=== PATIENT | female | born 1965 | race Caucasian/White ===

== ENCOUNTER 2016-07-12 13:59 | Inpatient (IN) | payer OTHER ==
[~2016-07-12] VITALS: Ht 157.5 cm; Wt 59.0 kg
[~2016-07-12 13:59] MED LIST: ALPRAZOLAM ER1 MG PO; AMITRIPTYLINE H10 M2; ATIVAN0.5 M1 PO; COMBIPATCH 0.01 EACH; CYCLOBENZAPRINE5 M2 PO; ESCITALOPRAM OX10 MG PO; FIORICET 300 MG1 CAP PO; FISH OIL500 M1 PO; GARLIC OIL1000 M1 PO; MAGNESIUM250 M3 PO; MAGNESIUM500 M2 PO; MELOXICAM7.5 M1 PO; MULTI-DAY VITA1 EACH PO; NEURONTIN300 M1 PO; NORCO 5-325 TA1 EACH PO; ODORLESS GARLI300 MG PO; PROBIOTIC1 EACH PO; REGLAN10 MG PO; SEA-OMEGA 50 C1 EACH PO; SYNTHROID0.088 MG PO; VITAMIN B-121000 MC3 PO; VITAMIN B-2100 MG PO; VITAMIN B-250 MG PO; VITAMIN C1000 M4 PO; VITAMIN C250 M3 PO; VITAMIN D2000 UNIT PO; VITAMIN D31000 UNI1 PO; XANAX0.5 M1 PO
[2016-07-12] MEDS ORDERED: SYNTHROID112 MCG PO (14:17)
[2016-07-12] MEDS ORDERED: DEXTROAMP-AMPHE10 MG PO (14:17)
[2016-07-12] MEDS ORDERED: CLONAZEPAM0.5 M2 PO (14:17)
[2016-07-12] MEDS ORDERED: SERTRALINE HCL50 MG PO (14:18)
[2016-07-12] MEDS ORDERED: RISPERIDONE0.5 M1 PO (14:18)
--- NOTE | 2016-07-12 14:27 | ED PSYCHIATRIC COMPLAINT ---
History of Present Illness General Chief Complaint: Psychiatric Related Complaint Stated Complaint: +SI/ +HI Source: patient, family, old records Exam Limitations: no limitations Vital Signs & Intake/Output Vital Signs & Intake/Output Vital Signs Date Time Temp Pulse Resp B/P Pulse O2 O2 Flow FiO2 Ox Delivery Rate 07/13 2028 97.7 92 92 105/67 07/13 1538 96 108/63 07/13 1214 100 107/69 07/13 0801 97.5 88 94/54 ED Intake and Output 07/13 0000 07/12 1200 Intake Total 120 Output Total Balance 120 Intake, Oral 120 Patient 130 lb Weight Allergies Coded Allergies: latex (Mild, RASH 01/22/16) escitalopram (From LEXAPRO) (RACING HEART 01/22/16) gluten (INTOLERANCE 01/26/16) Antihistamines - Ethanolamine (Intermediate, "WIRES ME UP" 06/10/16) hydromorphone (NUMBNESS, COULDNT FEEL LEGS 01/22/16) prednisone (ANXIETY 01/22/16) Triage Note: 50 Y/O FEMALE C/O "THESE THOUGHTS ARE GETTING WORSE". REPORTS SI/HI THOUGHTS SINCE LAST TREATED IN ED/CPS. WAS PRESCRIBED MEDICATIONS BUT ADMITS TO NOT TAKING THEM REGULARLY (RISPERDAL, ADDERALL, KLONOPIN AND ZOLOFT). MALE FRIEND IN TRIAGE COMMENTS "SHES LYING". PT C/O DIFFICULTY SLEEPING AND EATING. CALM/COOPERATIVE TO ROOM 14. Triage Nurses Notes Reviewed? yes Onset: Gradual Duration: getting worse Timing: remote history Severity: severe Severity Numbers: 10 HPI: Patient is a 50-year-old female with past medical history of psychosis, homicidal and suicidal ideation, anxiety, depression, hypothyroidism who presents to emergency room with significant concerns for thoughts of harming herself and others. Patient does present to the emergency room with family members of mother and . Patient does state that he she is noncompliant with medications of Risperdal, Adderall, Klonopin and Zoloft. Patient does state that she has racing thoughts consistently of ideations of harming other people when out in public and was harming her pet dog. Patient does state constantly hears things that may not be there OF voices and has premonitions of seeing God Patient denies any illicit drug use and denies any alcohol use however does smoke tobacco. 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 Patient currently is not employed. Patient does live with and mom also discussed they're concerned of severe psychosis and thoughts of harming other people herself and animals. Patient denies any illness currently (JOSEPH BONILLA) Reconcile Medications Clonazepam 0.5 MG TABLET 1 TAB PO DAILY NEEDED INSOMNIA (Reported) Dextroamphetamine/Amphetamine (Dextroamp-Amphetamin 10 MG Tab) 10 MG TABLET 1 TAB PO BID ATTENTION DEFICIT (Reported) Lactobacillus Acidophilus (Probiotic) 1 EACH CAPSULE 1 CAP PO DAILY PROBIOTIC (Reported) Levothyroxine Sodium (Synthroid) 112 MCG TABLET 1 TAB PO DAILY HYPOTHYROIDISM (Reported) Risperidone 0.5 MG TABLET 1 TAB PO QAM DEPRESSION (Reported) 0.5MG QAM Risperidone (Risperdal) 1 MG TABLET 1 MG PO QHS MENTAL HEALTH (Reported) Sertraline HCl 50 MG TABLET 1 TAB PO DAILY DEPRESSION (Reported) (TATO JOHN,RAFY) Past History Travel History Traveled to [place] past 21 day No Medical History Any Pertinent Medical History? see below for history Neurological: peripheral neuropathy EENT: sinusitis Cardiovascular: NONE Respiratory: SARCOIDOSIS Gastrointestinal: CELIAC DISEASE Hepatic: NONE Renal: NONE Musculoskeletal: fibromyalgia Psychiatric: anxiety, depression Endocrine: Baylee's thyroiditis, HYPOTHYROIDISM Blood Disorders: NONE Cancer(s): NONE SCRAP PICKER/Reproductive: NONE History of MRSA: No History of VRE: No History of CDIFF: No Surgical History Surgical History: non-contributory Psychosocial History Who do you live with Family What is your primary language Hebrew Tobacco Use: Current Daily Use Daily Tobacco Use Amount/Type: => 5 Cigarettes daily Family History Hx Contributory? No (JOSEPH BONILLA) Review of Systems Review of Systems Constitutional: Reports: no symptoms. EENTM: Reports: no symptoms. Respiratory: Reports: no symptoms. Cardiovascular: Reports: no symptoms. GI: Reports: no symptoms. Genitourinary: Reports: no symptoms. Musculoskeletal: Reports: no symptoms. Skin: Reports: no symptoms. Neurological/Psychological: Reports: see HPI. Hematologic/Endocrine: Reports: no symptoms. Immunologic/Allergic: Reports: no symptoms. 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 Pupils equally round and reactive to light and accommodation. Nose is atraumatic. External auditory canal and Tympanic membranes clear. Pharynx normal. No swelling or edema. Neck: Supple, no lymphadenopathy, normal range of motion without pain or tenderness Back: Nontender, no CVA tenderness. Cardiovascular: Regular rate and rhythms no murmurs rubs or gallops, normal JVP Respiratory: Chest nontender. No respiratory distress.breath sounds clear to auscultation bilaterally Abdomen: Soft, nontender nondistended, no appreciable organomegaly. Normal bowel sounds. No ascites Extremity: No edema, no calf tenderness to palpation, normal and equal pulses. Neuro: Alert oriented x3, motor sensory normal, cranial nerves II through XII grossly intact. Skin: No appreciable rash on exposed skin, skin is warm and dry. Psych: Mood and affect is normal, memory and judgment is normal. SAD PERSONS SAD PERSONS Response Value Age <19 or >45 years? yes 1 Depression/Hopelessness? yes 2 Previous Attempts/Psych Care yes 1 Rational Thinking Loss? yes 2 Organized/Serious Attempt yes 2 Social Support? has support 0 Total 8 SAD PERSONS Done? yes (LUCIO HUA,JOSEPH) Progress Differential Diagnosis: dementia, drug intoxication, drug overdose, drug withdrawal, electrolyte abnormality, encephalitis, hypoglycemia, hypothyroidism, IC hem/mass/tumor, meningitis Plan of Care: Orders Procedure Date/time Status Change service to 07/13 [facility] Active Lab Add-on Test 07/13 [facility] Active LIPID PANEL 07/12 1445 Complete Current Medications Sig/Remi Start time Last Medication Dose Stop Time Status Admin Risperidone 1 MG 0800 07/14 0800 AC (Risperidone) Nicotine 2 MG Q2 HRS NEEDED PRN 07/13 1715 AC (Nicotine) Cyanocobalamin 1,000 MCG DAILY 07/13 1000 AC (Vitamin B12) Fish Oil 1,050 MG DAILY 07/13 1000 AC ([place]-3) Al Hydroxide/Mg 30 ML Q4-6 PRN PRN 07/12 1645 AC Hydroxide (Maalox Plus) Ibuprofen 400 MG Q6P PRN 07/12 1645 AC (Motrin) Lorazepam 1 MG Q4 HRS NEEDED PRN 07/12 1645 AC (Ativan) Risperidone 0.5 MG Q4 HRS NEEDED PRN 07/12 1645 AC (Risperidone) Trazodone HCl 50 MG AT BEDTIME NEED.. 07/12 1645 AC (Desyrel) I had a private conversation with family members were significantly concerned of patient's mental health. I discussed my concerns with case management who will evaluate patient after blood work and tox- screen is pending Case management evaluated patient and will be admitting to Inpatient Psychiatry (JOSEPH BONILLA) Departure Departure Disposition: STILL A PATIENT Condition: Critical Referrals: NOAH MOYA MD (PCP/Family) Referred to [facility] as new patient No Departure Forms: Customer Survey General Discharge Information Psych Admission Note Psychiatric Admission: I have seen and evaluated JONEL LACY. I have also reviewed all the pertinent lab results and diagnostic results. JONEL LACY will be admitted to our inpatient Psychiatric unit for treatment and care. (JOSEPH BONILLA) Departure Clinical Impression Primary Impression: Psychotic disorder PA/BLOCK SAWYER Co-Sign Statement Statement: ED Attending supervision documentation- [X] I saw and evaluated the patient. I have also reviewed all the pertinent lab results and diagnostic results. I agree with the findings and the plan of care as documented in the PA's/BLOCK SAWYER's documentation. [X] I have reviewed the ED Record and agree with the PA's/BLOCK SAWYER's documentation. [] Additions or exceptions (if any) to the PAs/BLOCK SAWYER's note and plan are summarized below: [] (TATO JOHN,RAFY) Critical Care Note Critical Care Note Critical Care Time: 30-74 min (JOSEPH BONILLA)
[2016-07-12 15:09] LABS: ABSOLUTE BASOPHIL COUNT 0 /CUMM (0.0-0.2); ABSOLUTE EOSINOPHIL COUNT 0 /CUMM (0.0-0.7); ABSOLUTE MONOCYTE COUNT 0.6 /CUMM (0.10-0.60); BASOPHIL % 0.3 % (0.0-2.0); EOSINOPHIL % 0.4 % (0-5); GRANULOCYTE % 82.2 % (42.2-75.2); HEMATOCRIT 47.7 % (37-47); MEAN CORPUSCULAR HGB 30.2 PG (27.0-31.0); MEAN CORPUSCULAR HGB CONC 34.3 G/DL (33.0-37.0); MEAN CORPUSCULAR VOLUME 88.1 FL (81.0-99.0); MEAN PLATELET VOLUME 7.8 FL (7.4-10.4); PLATELET COUNT 330 /CUMM (130-400); RBC DISTRIBUTION WIDTH 13.4 % (11.5-14.5); RED BLOOD CELL CT 5.41 /CUMM (4.20-5.40); WHITE BLOOD CELL COUNT 9.7 /CUMM (4.8-10.8)
--- NOTE | 2016-07-12 16:42 | ED PSYCH CRISIS CONSULTATION ---
Crisis Consult Basic Assessment Date of Consult: 07/12/16 Responsible Person/Accompanied By: Jamir her and her Mother [place] Insurance Authorization: Insurance #1: Insurance name: RONA BL[employer] Phone number: Policy number: [id number] Group number: [id number] Authorization number: I placed a call for authorization, and the office is closed , the number on the back of Insurance card is [phone]. I left a voicemailrequesting a callback/ I provided crisis number as well as CPS. ED Provider: Patient's ED Provider: JOSEPH BONILLA Primary Care Physician: Patient's PCP: NOAH MOYA MD PCP's Current Psychiatrist: ELSIE LARIOS Chief Complaint: Psychiatric Related Complaint Patient's Quote: Im having horrible, violent thoughts and they are getting worse Present Illness: Pt is a 50 year old female most recently admitted to [facility] in May 2016 for MDD, recurrent severe with psychosis. She arrives to ER today with a similar presentation, with her and her Mother as support. Pt states she stopped taking medications as prescribed since her discharge from [facility]. Her offers she was doing well while in the hospital and her symptoms were managed for a few weeks after her discharge, however he mentions she does not want to take medications. Pt agrees with her , and she states she feels "smoking and being exposed to xrays years ago has given her brain damage and she can only focus on negativty". She indicates she is having homicidal thoughts towrds and her dog, as well as thinking she wishes she could just be brave enough to kill herself and "be done with all this already". Patients Mother states these behaviors began in December 2015. Pt is reporting si,hi ,ah, vh. She is tearful, hopeless, not sleeping and having intrusive thoughts, she would like to be admitted to inpatient for stabilization and safety. Patient's Address: [address] [place] [address] Other Who Do You Live With? Family Family/Informants Interviewed: and Mother were there while patient interviewed. And offer they are concerned for her well being at this point, and would like her to be med compliant in future. Allergies - Coded Allergies: latex (Mild, RASH 01/22/16) escitalopram (From LEXAPRO) (RACING HEART 01/22/16) gluten (INTOLERANCE 01/26/16) Antihistamines - Ethanolamine (Intermediate, "WIRES ME UP" 06/10/16) hydromorphone (NUMBNESS, COULDNT FEEL LEGS 01/22/16) prednisone (ANXIETY 01/22/16) Current Medications - Scheduled Medications Alprazolam (Alprazolam ER) 1 MG TAB.ER.24H 1 TAB PO DAILY ANXIETY #30 ( Reported) Entered as Reported by NITESH URBINA on 12/26/15 1158 Ascorbic Acid (Vitamin C) (Unknown Strength) TABLET (Unknown Dose) PO DAILY SUPPLEMENT (Reported) Entered as Reported by CYNTHIA HOLLINS on 01/26/161958 Cholecalciferol (Vitamin D3) (Vitamin D) (Unknown Strength) CAPSULE (Unknown Dose) PO DAILY SUPPLEMENT (Reported) Entered as Reported by CYNTHIA HOLLINS on 01/26/161958 Clonazepam 0.5 MG TABLET 1 TAB PO DAILY NEEDED INSOMNIA #30 (Reported) Entered as Reported by MASON VELIZ on 07/12/16 141 Cyanocobalamin (Vitamin B-12) (Unknown Strength) TABLET (Unknown Dose) PO DAILY SUPPLEMENT (Reported) Entered as Reported by CYNTHIA HOLLINS on 01/26/161956 Dextroamphetamine/Amphetamine (Dextroamp-Amphetamin 10 MG Tab) 10 MG TABLET 1 TAB PO BID ATTENTION DEFICIT #30 (Reported) Entered as Reported by MASON VELIZ on 07/12/16 1417 Gabapentin (Neurontin) 300 MG CAPSULE 1 CAP PO TID fibromyalgia #21 CAP Prescribed by JOSEPH ADAMS on 01/17/16 Garlic (Odorless Garlic) (Unknown Strength) CAPSULE (Unknown Dose) PO DAILY SUPPLEMENT (Reported) Entered as Reported by CYNTHIA HOLLINS on 01/26/162000 Lactobacillus Acidophilus (Probiotic) 1 EACH CAPSULE 1 CAP PO DAILY PROBIOTIC (Reported) Entered as Reported by CYNTHIA HOLLINS on 01/26/161999 Levothyroxine Sodium (Synthroid) 0.088 MG TAB 1 TAB PO DAILY AC THYROID #30 ( Reported) Entered as Reported by NITESH URBINA on 02/07/14 1119 Levothyroxine Sodium (Synthroid) 112 MCG TABLET 1 TAB PO DAILY HYPOTHYROIDISM #30 (Reported) Entered as Reported by MASON VELIZ on 07/12/16 141 Magnesium (Unknown Strength) TABLET (Unknown Dose) PO DAILY SUPPLEMENT ( Reported) Entered as Reported by CYNTHIA HOLLINS on 01/26/161958 Multivitamin (Multi-Day Vitamins) 1 EACH TABLET 1 TAB PO DAILY SUPPLEMENT ( Reported) Entered as Reported by CYNTHIA HOLLINS on 01/26/161956 [place]-3 Fatty Acids (Fish Oil) (Unknown Strength) CAPSULE (Unknown Dose) PO DAILY SUPPLEMENT (Reported) Entered as Reported by CYNTHIA HOLLINS on 01/26/161957 Riboflavin (Vitamin B-2) (Unknown Strength) TABLET (Unknown Dose) PO DAILY SUPPLEMENT (Reported) Entered as Reported by CYNTHIA HOLLINS on 01/26/161957 Risperidone 0.5 MG TABLET 1 TAB PO QAM DEPRESSION #42 (Reported) Entered as Reported by MASON VELIZ on 07/12/16 141 Sertraline HCl 50 MG TABLET 1 TAB PO DAILY DEPRESSION #30 (Reported) Entered as Reported by MASON VELIZ on 07/12/16 141 Scheduled PRN Medications Meloxicam 7.5 MG TABLET 1-2 TAB PO DAILY PRN PAIN #60 (Reported) Entered as Reported by CYNTHIA HOLLINS on 12/21/15 1603 Miscellaneous Medications Amitriptyline HCl (Unknown Strength) TABLET (Unknown Dose) UNKNOWN #30 ( Reported) Entered as Reported by CYNTHIA HOLLINS on 01/26/161954 Estradiol/Norethindrone Acet (Combipatch 0.05-0.14 MG Ptch) (Unknown Strength) PATCH.TDSW (Unknown Dose) UNKNOWN #8 (Reported) Entered as Reported by CYNTHIA HOLLINS on 01/26/161954 Laboratory Results: Laboratory Tests 07/12/16 1445: Anion Gap 11, Estimated GFR > 60, BUN/Creatinine Ratio 10.0, Glucose 119 H, Calcium 9.9, Total Bilirubin 0.7, AST 17, ALT 26, Alkaline Phosphatase 67, Total Protein 7.7, Albumin 4.6, Globulin 3.1, Albumin/Globulin Ratio 1.5, TSH 1.800, Thyroxine (T4) 12.0 H, CBC w Diff NO MAN DIFF REQ, RBC 5.41 H, MCV 88.1, MCH 30.2, RDW 13.4, MPV 7.8, Gran % 82.2 H, Lymphocytes % 10.4 L, Monocytes % 6.7, Eosinophils % 0.4, Basophils % 0.3, Absolute Granulocytes 8.0 H, Absolute Lymphocytes 1.0 L, Absolute Monocytes 0.6, Absolute Eosinophils 0, Absolute Basophils 0, PUBS MCHC 34.3, Serum Alcohol < 10.0 07/12/16 1440: Urine Opiates Screen < 100.00, Methadone Screen < 40, Barbiturate Screen < 60, Ur Phencyclidine Scrn < 6.00, Amphetamines Screen 1431 H, U Benzodiazepines Scrn < 85, Urine Cocaine Screen < 50, Urine Cannabis Screen < 5.00, Urine Color YEL, Urine Clarity HAZY H, Urine pH 6.5, Ur Specific [place] 1.015, Urine Protein NEG, Urine Ketones 15 H, Urine Nitrite NEG, Urine Bilirubin NEG, Urine Urobilinogen 0.2, Ur Leukocyte Esterase NEG, Ur Microscopic SEDIMENT EXAMINED, Urine RBC 5-10 H, Urine WBC RARE, Ur Epithelial Cells MANY H, Urine Crystals 3 + CA OX H, Urine Mucus RARE, Urine Hemoglobin SMALL H, Urine Glucose NEG, Urine Test NEGATIVE Past History Past Medical History Neurological: peripheral neuropathy EENT: sinusitis Cardiovascular: NONE Respiratory: SARCOIDOSIS Gastrointestinal: CELIAC DISEASE Hepatic: NONE Renal: NONE Musculoskeletal: fibromyalgia Psychiatric: anxiety, depression Endocrine: Baylee's thyroiditis, HYPOTHYROIDISM Blood Disorders: NONE Cancer(s): NONE DIRECTOR ENVIRONMENTAL/Reproductive: NONE Past Surgical History Surgical History: non-contributory Psychosocial History Strengths/Capabilities: Pt has a supportive family. Pt has a desire to feel better. Pt is treatment-seeking. Pt is able to articulate her wants and needs. Physical Limitations (Interventions): Chronic back pain Psychiatric Treatment History Psych Treatment Psychiatric Treatment Yes Inpatient Treatment Yes Outpatient Treatment Yes Location of Treatment [facility] and OP Reason for Treatment MDD, psychosis Dates of Treatment May 2016, and currently in OP Response to Treatment did better in hospital, and has difficulty staying med compliant Diagnosis by History: generalized anxiety d/o Substance Use/Abuse History Drug Use/Abuse Substances Used/Abused No Substance Abuse Treatment Substance Abuse Treatment Past Substance Abuse [place] No Comments: Pt is prescribed Adderall, and took it today before lunch Current Mental Status Mental Status Orientation: Person, Place, Situation Affect: Blunted, Depressed, Flat, Hopeless, Sad Speech: Soft, WNL Neuro-vegetative: Appetite Decreased, Concentration Poor, Energy Decreased, Helpless, Loss of Interest, Sleep Disturbance Appearance Appearance- Dress/Hygiene: Looks appropriate in hospital attire Behaviors Thought Process: Irrational Thought Content: Auditory Hallucinations, Delusions, Paranoid, Visual Hallucinations Memory: WNL Insight: Poor SI/HI Risk Assessment Past Suicidal Ideation/Attempts Yes Current Suicidal Ideation/Att Yes Past Homicidal Ideation/Att: Yes Current Homicidal Ideation/Attempts Yes Degree of Intent: Self Destructive/No , Thoughts/No Intent Danger To: Others, Self Gravely Disabled: Inability Risk Factors: SA/MH hospitalized, lack of outcome concern Lethality Ratin PTSD Checklist PTSD Done? patient declined ED Management Sitter: Yes Restraints: No DSM5/PS Stressors/Medical Prob Diagnosis' (DSM 5, Stressors, Medical): F33.3 MDD recurrent severe, with psychosis Current GAF: 26 Departure Disposition Psych Medical Clearance Date: 07/12/16 Medically Cleared at: 1539 Time Started: 1539 Time Ended: 163 Psychiatrist Consulted: Jose Carpenter Date Disposition Established: 07/12/16 Time Disposition Established: 1638 Plan for Disposition - Modality: Inpatient Psychiatry Facility: [facility] Follow-up Appt Date: 07/12/16 Follow-Up Appt Time: 1640 Contact: [facility] Telephone: [phone] Rationale for Disposition: Consulted with Dr. Carpenter, pt to be admitted to [facility] due to mood insyability, and psychosis. Pt reporting si,hi,ah,vh, and stopped taking medication. Type of IP Admission: Voluntary Additional Instructions: Pt to follow up with treatment recommendations possible referral to visiting nursing post CPS admission. Referrals NITA JOHN,NOAH (PCP/Family)
--- NOTE | 2016-07-12 16:48 | IP CRISIS DIAG ASSESS PSYCH ---
Diagnostic Assessment Basic Assessment Insurance Authorization: Insurance #1: Insurance name: RONA BLACK Phone number: Policy number: [id number] Group number: [id number] Authorization number: I placed a call for authorization, and the office is closed , the number on the back of Insurance card is [phone]. I left a voicemailrequesting a callback/ I provided crisis number as well as CPS. Primary Care Physician: Patient's PCP: NOAH MOYA MD PCP's Patient's Quote: Im having horrible, violent thoughts and they are getting worse Present Illness: Pt is a 50 year old female most recently admitted to [facility] in May 2016 for MDD, recurrent severe with psychosis. She arrives to ER today with a similar presentation, with her and her Mother as support. Pt states she stopped taking medications as prescribed since her discharge from [facility]. Her offers she was doing well while in the hospital and her symptoms were managed for a few weeks after her discharge, however he mentions she does not want to take medications. Pt agrees with her , and she states she feels "smoking and being exposed to xrays years ago has given her brain damage and she can only focus on negativty". She indicates she is having homicidal thoughts towrds and her dog, as well as thinking she wishes she could just be brave enough to kill herself and "be done with all this already". Patients Mother states these behaviors began in December 2015. Pt is reporting si,hi ,ah, vh. She is tearful, hopeless, not sleeping and having intrusive thoughts, she would like to be admitted to inpatient for stabilization and safety. Patient's Address: [address] [place] [address] Other Who Do You Live With? Family Feel Safe Where You Live? Yes Feel Safe in Your Relationship Yes Marital Status: Do You Have Children? Yes Ages? 19 and 20 Primary Language? Tanzanian Language(s) Spoken At Home: Tanzanian Family/Informants Interviewed: and Mother were there while patient interviewed. And offer they are concerned for her well being at this point, and would like her to be med compliant in future. Allergies - Coded Allergies: latex (Mild, RASH 01/22/16) escitalopram (From LEXAPRO) (RACING HEART 01/22/16) gluten (INTOLERANCE 01/26/16) Antihistamines - Ethanolamine (Intermediate, "WIRES ME UP" 06/10/16) hydromorphone (NUMBNESS, COULDNT FEEL LEGS 01/22/16) prednisone (ANXIETY 01/22/16) Current Medications - Scheduled Medications Ascorbic Acid (Vitamin C) (Unknown Strength) TABLET (Unknown Dose) PO DAILY SUPPLEMENT (Reported) Entered as Reported by CYNTHIA HOLLINS on 01/26/161958 Cholecalciferol (Vitamin D3) (Vitamin D) (Unknown Strength) CAPSULE (Unknown Dose) PO DAILY SUPPLEMENT (Reported) Entered as Reported by CYNTHIA HOLLINS on 01/26/161958 Clonazepam 0.5 MG TABLET 1 TAB PO DAILY NEEDED INSOMNIA #30 (Reported) Entered as Reported by MASON VELIZ on 07/12/161416 Cyanocobalamin (Vitamin B-12) (Unknown Strength) TABLET (Unknown Dose) PO DAILY SUPPLEMENT (Reported) Entered as Reported by CYNTHIA HOLLINS on 01/26/161956 Dextroamphetamine/Amphetamine (Dextroamp-Amphetamin 10 MG Tab) 10 MG TABLET 1 TAB PO BID ATTENTION DEFICIT #30 (Reported) Entered as Reported by MASON VELIZ on 07/12/16 141 Gabapentin (Neurontin) 300 MG CAPSULE 1 CAP PO TID fibromyalgia #21 CAP Prescribed by JOSEPH ADAMS on 01/17/16 Garlic (Odorless Garlic) (Unknown Strength) CAPSULE (Unknown Dose) PO DAILY SUPPLEMENT (Reported) Entered as Reported by CYNTHIA HOLLINS on 01/26/162000 Lactobacillus Acidophilus (Probiotic) 1 EACH CAPSULE 1 CAP PO DAILY PROBIOTIC (Reported) Entered as Reported by CYNTHIA HOLLINS on 01/26/161999 Levothyroxine Sodium (Synthroid) 112 MCG TABLET 1 TAB PO DAILY HYPOTHYROIDISM #30 (Reported) Entered as Reported by MASON VELIZ on 07/12/161416 Magnesium (Unknown Strength) TABLET (Unknown Dose) PO DAILY SUPPLEMENT ( Reported) Entered as Reported by CYNTHIA HOLLINS on 01/26/161958 Multivitamin (Multi-Day Vitamins) 1 EACH TABLET 1 TAB PO DAILY SUPPLEMENT ( Reported) Entered as Reported by CYNTHIA HOLLINS on 01/26/161956 [place]-3 Fatty Acids (Fish Oil) (Unknown Strength) CAPSULE (Unknown Dose) PO DAILY SUPPLEMENT (Reported) Entered as Reported by CYNTHIA HOLLINS on 01/26/161957 Riboflavin (Vitamin B-2) (Unknown Strength) TABLET (Unknown Dose) PO DAILY SUPPLEMENT (Reported) Entered as Reported by CYNTHIA HOLLINS on 01/26/161957 Risperidone 0.5 MG TABLET 1 TAB PO QAM DEPRESSION #42 (Reported) Entered as Reported by MASON VELIZ on 07/12/16 141 Sertraline HCl 50 MG TABLET 1 TAB PO DAILY DEPRESSION #30 (Reported) Entered as Reported by MASON VELIZ on 07/12/16 1418 Scheduled PRN Medications Meloxicam 7.5 MG TABLET 1-2 TAB PO DAILY PRN PAIN #60 (Reported) Entered as Reported by CYNTHIA HOLLINS on 12/21/15 1603 Miscellaneous Medications Estradiol/Norethindrone Acet (Combipatch 0.05-0.14 MG Ptch) (Unknown Strength) PATCH.TDSW (Unknown Dose) UNKNOWN #8 (Reported) Entered as Reported by CYNTHIA HOLLINS on 01/26/161954 Consequences of Psych Med Use: non-compliant since previous discharge Lab Results: Laboratory Tests 07/12/16 1445: Anion Gap 11, Estimated GFR > 60, BUN/Creatinine Ratio 10.0, Glucose 119 H, Calcium 9.9, Total Bilirubin 0.7, AST 17, ALT 26, Alkaline Phosphatase 67, Total Protein 7.7, Albumin 4.6, Globulin 3.1, Albumin/Globulin Ratio 1.5, TSH 1.800, Thyroxine (T4) 12.0 H, CBC w Diff NO MAN DIFF REQ, RBC 5.41 H, MCV 88.1, MCH 30.2, RDW 13.4, MPV 7.8, Gran % 82.2 H, Lymphocytes % 10.4 L, Monocytes % 6.7, Eosinophils % 0.4, Basophils % 0.3, Absolute Granulocytes 8.0 H, Absolute Lymphocytes 1.0 L, Absolute Monocytes 0.6, Absolute Eosinophils 0, Absolute Basophils 0, PUBS MCHC 34.3, Serum Alcohol < 10.0 07/12/16 1440: Urine Opiates Screen < 100.00, Methadone Screen < 40, Barbiturate Screen < 60, Ur Phencyclidine Scrn < 6.00, Amphetamines Screen 1431 H, U Benzodiazepines Scrn < 85, Urine Cocaine Screen < 50, Urine Cannabis Screen < 5.00, Urine Color YEL, Urine Clarity HAZY H, Urine pH 6.5, Ur Specific [place] 1.015, Urine Protein NEG, Urine Ketones 15 H, Urine Nitrite NEG, Urine Bilirubin NEG, Urine Urobilinogen 0.2, Ur Leukocyte Esterase NEG, Ur Microscopic SEDIMENT EXAMINED, Urine RBC 5-10 H, Urine WBC RARE, Ur Epithelial Cells MANY H, Urine Crystals 3 + CA OX H, Urine Mucus RARE, Urine Hemoglobin SMALL H, Urine Glucose NEG, Urine Test NEGATIVE Toxicology Screen Completed? Yes Results: positive Symptoms of Use: Pt denies drugs and etoh abuse, is prescribed adderral. Past History Past Surgical History Surgical History , MEDIASTINEOSCOPY Abuse/Trauma History Trauma History/Current Trauma: Denies Legal History Current Legal Status: none Have you ever been arrested? No Number of Arrests: [address] Dates: None Affirmative Action Specialist N/a Psychosocial History Strengths/Capabilities: Pt has a supportive family. Pt has a desire to feel better. Pt is treatment-seeking. Pt is able to articulate her wants and needs. Physical Limitations (Interventions): Chronic back pain Psychiatric Treatment History Psych Treatment Psychiatric Treatment Yes Inpatient Treatment Yes Outpatient Treatment Yes Location of Treatment [facility] and OP Reason for Treatment MDD, psychosis Dates of Treatment May 2016, and currently in OP Response to Treatment did better in hospital, and has difficulty staying med compliant Diagnosis by History: generalized anxiety d/o Risk Factors: SA/MH hospitalized, lack of outcome concern Substance Use/Abuse History Drug Use/Abuse minimum 12mo Hx Substances Used/Abused No Substance Abuse Treatment Substance Abuse Treatment Past Substance Abuse [place] No Sexual History Sexually Active Yes # of partners 1 Sexual Orientation Heterosexual Use of Protection No Sexual Concerns: denies Education History Highest Level of Education: high school/GED, xray school Preferred Learning Style: visual, auditory, experiential Current Mental Status Mental Status Orientation: Person, Place, Situation Affect: Blunted, Depressed, Flat, Hopeless, Sad Speech: Soft, WNL Neuro-vegetative: Appetite Decreased, Concentration Poor, Energy Decreased, Helpless, Loss of Interest, Sleep Disturbance Appearance Appearance- Dress/Hygiene: Looks appropriate in hospital attire Behaviors Thought Process: Irrational Thought Content: Auditory Hallucinations, Delusions, Paranoid, Visual Hallucinations Memory: WNL Insight: Poor SI/HI Risk Assessment - Minimum 6mo History- Past Suicidal Ideation/Attempts Yes Current Suicidal Ideation/Att Yes Past Homicidal Ideation/Att: Yes Current Homicidal Ideation/Attempts Yes Degree of Intent: Self Destructive/No , Thoughts/No Intent Danger To: Others, Self Gravely Disabled: Inability Risk Factors: SA/MH hospitalized, lack of outcome concern Lethality Ratin Needs/Init TX Plan/Goals: Medication evaluation, restart as recommended Group, individual therapy Family work AUDIT-C Questionnaire: AUDIT-C Questionnaire: Response Value ETOH use in the past year Never 0 # drinks typical/day Doesn't Drink 0 6 or > drinks per occasion Never 0 Total 0 DSM5/PS Stressors/Medical Prob Diagnosis' (DSM 5, Stressors, Medical): F33.3 MDD recurrent severe, with psychosis Current GAF: 26
[2016-07-12 17:24] VITALS: BP 107/75
[2016-07-12] MEDS ORDERED: RISPERDAL1 M1 PO (18:52)
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
--- NOTE | 2016-07-12 20:13 | PN- Att Addend ---
See Addendum Attending Addendum Attending Brief Note This is a follow up note, as patient was discharged within the past 30 days. 50 yo F with h/o fibromyalgia, sarcoidosis, celiac disease, hypothyroidism, recently admitted for psychosis, depression and homicidal ideation (May 2016), is re-admitted to [facility] for homicidal ideation and racing thoughts. Patient is afraid that she will hurt her and her dog with these thoughts coming to her mind. She stopped taking her medications (Risperidal, Adderall, Klonopin and Zoloft) soon after discharge last month. She felt that the medications were not doing much for her. With regards to hypothyroidism, Dr. Yo evaluated patient during last admission. He has increased the synthroid dose to 112 mcg as TSH was elevated to 14. Patient followed up with Dr. Yo after discharge, no new med changes were done. She was asked to get repeat blood work around [place]. TSH today is 1.80. She reports chest discomfort and breathing difficulty only when she gets anxiety episodes. Of note, she stopped taking amitriptyline and gabapentin as her neuropathy and fibromyalgia is better. PMH: Sarcoidosis s/p mediastinoscopy, Baylee's thyroiditis, hypothyroidism, celiac disease, peripheral neuropathy, fibromyalgia, anxiety, depression, sinusitis. PSH: Sinus surgery, LSCS, mediastinoscopy. Family history: Father had hypertension and ruptured cerebral aneurysm. Social history: Current everyday smoker, Denies alcohol and illicit drug use. 12 point review of systems is otherwise negative. Vital Signs Date Time Temp Pulse Resp B/P Pulse O2 O2 Flow FiO2 Ox Delivery Rate 07/12 1724 97.7 100 107/75 07/12 1705 98 07/12 1650 Room Air 07/12 1640 98.4 110 16 136/80 98 Room Air 07/12 1514 98.1 80 18 130/80 96 Room Air 07/12 1406 98.1 111 20 131/86 95 Room Air Physical exam: Gen: AAO, co-operative. Skin: No rashes or breakdown. HEENT: Atraumatic, PERRLA. Neck: Supple. Chest: clear. Heart: S1S2 regular, no murmurs. Abd: soft, NT. Neuro: non focal. Extremities: no edema. Laboratory Tests 07/12 07/12 1445 1440 Chemistry Sodium (137 - 145 mmol/L) 139 Potassium (3.5 - 5.1 mmol/L) 4.5 Chloride (98 - 107 mmol/L) 104 Carbon Dioxide (22 - 30 mmol/L) 25 Anion Gap (5 - 16) 11 BUN (7 - 17 mg/dL) 9 Creatinine (0.5 - 1.0 mg/dL) 0.9 Estimated GFR (>60 ml/min) > 60 BUN/Creatinine Ratio (7 - 25 %) 10.0 Glucose (65 - 99 mg/dL) 119 H Calcium (8.4 - 10.2 mg/dL) 9.9 Total Bilirubin (0.2 - 1.3 mg/dL) 0.7 AST (14 - 36 U/L) 17 ALT (9 - 52 U/L) 26 Alkaline Phosphatase (<127 U/L) 67 Total Protein (6.3 - 8.2 g/dL) 7.7 Albumin (3.5 - 5.0 g/dL) 4.6 Globulin (1.9 - 4.2 gm/dL) 3.1 Albumin/Globulin Ratio (1.1 - 2.2 %) 1.5 TSH (0.270 - 4.200 uIU/mL) 1.800 Thyroxine (T4) (4.5 - 10.9 ug/dL) 12.0 H Hematology CBC w Diff NO MAN DIFF REQ WBC (4.8 - 10.8 /CUMM) 9.7 RBC (4.20 - 5.40 /CUMM) 5.41 H Hgb (12.0 - 16.0 G/DL) 16.4 H Hct (37 - 47 %) 47.7 H MCV (81.0 - 99.0 FL) 88.1 MCH (27.0 - 31.0 PG) 30.2 RDW (11.5 - 14.5 %) 13.4 Plt Count (130 - 400 /CUMM) 330 MPV (7.4 - 10.4 FL) 7.8 Gran % (42.2 - 75.2 %) 82.2 H Lymphocytes % (20.5 - 51.1 %) 10.4 L Monocytes % (1.7 - 9.3 %) 6.7 Eosinophils % (0 - 5 %) 0.4 Basophils % (0.0 - 2.0 %) 0.3 Absolute Granulocytes (1.4 - 6.5 /CUMM) 8.0 H Absolute Lymphocytes (1.2 - 3.4 /CUMM) 1.0 L Absolute Monocytes (0.10 - 0.60 /CUMM) 0.6 Absolute Eosinophils (0.0 - 0.7 /CUMM) 0 Absolute Basophils (0.0 - 0.2 /CUMM) 0 PUBS MCHC (33.0 - 37.0 G/DL) 34.3 Toxicology Urine Opiates Screen (>2000 NG/ML) < 100.00 Methadone Screen (>300 NG/ML) < 40 Barbiturate Screen (>200 NG/ML) < 60 Ur Phencyclidine Scrn (>25 NG/ML) < 6.00 Amphetamines Screen (>1000 NG/ML) 1431 H U Benzodiazepines Scrn (>200 NG/ML) < 85 Urine Cocaine Screen (>300 NG/ML) < 50 Urine Cannabis Screen (>50 NG/ML) < 5.00 Serum Alcohol (<10 MG/DL) < 10.0 Urines Urine Color (YEL,AMB,STR) YEL Urine Clarity (CLEAR) HAZY H Urine pH (5.0 - 8.0) 6.5 Ur Specific [place] (1.001 - 1.035) 1.015 Urine Protein (NEG,<30 MG/DL) NEG Urine Ketones (NEG) 15 H Urine Nitrite (NEG) NEG Urine Bilirubin (NEG) NEG Urine Urobilinogen (0.1 - 1.0 EU/dl) 0.2 Ur Leukocyte Esterase (NEG) NEG Ur Microscopic SEDIMENT EXAMINED Urine RBC (0 - 5 /HPF) 5-10 H Urine WBC (0 - 2 /HPF) RARE Ur Epithelial Cells (NONE,FEW) MANY H Urine Crystals 3+ CA OX H Urine Mucus (FEW,NONE) RARE Urine Hemoglobin (NEG) SMALL H Urine Glucose (N MG/DL) NEG Urine Test NEGATIVE Assessment and plan: 50 yo F with h/o fibromyalgia, celiac disease and hypothyroidism, is admitted to [facility] for homicidal ideation, anxiety, ?psychosis. 1. Management per Psych team. 2. Hypothyroidism. TSH and free T4 are normal, with an elevated Total T4. I discussed with Dr. Yo, he recommends to continue with current dose (112 mcg) of synthroid and patient can follow up as outpatient. 3. Smoking cessation counseling, nicotine patch. 4. Fibromyalgia/neuropathy under control. It is worse during summer time. Patient has voluntarily stopped taking amitriptyline and gabapentin. Will monitor for now. DVT ppx Low risk, early ambulation.
[2016-07-13 08:01] VITALS: BP 94/54
--- NOTE | 2016-07-13 10:55 | SOCIAL WORKER TX PLAN PSYCH ---
Treatment Plan - Please Document: - Evidence that there is ongoing collaboration between - the patient and the interdisciplinary team, - including the patient's active participation and - responsibility for engaging in the treatment regimen, - and that the treatment plan is individualized and - relevant to the patient's conditions. - Treatment plan should reflect documentation indicating - that all active therapeutic efforts are included. Strengths/Capabilities: Pt has a supportive family. Pt has a desire to feel better. Pt is treatment-seeking. Pt is able to articulate her wants and needs. Physical Limitations (Interventions): Chronic back pain Patient Identified Trmt Goals: "I want these thoughts and voices to go away" Discharge Plan: IOP Problem/Goals #1 Problem #1: homicidal ideation Goal (Short Term): Today I will attend 2 groups Today I will identify 2 stressors Today I will identify 2 positive supports Today I will work on recognizing 3 emotions I am feeling Goal (Half-Way): Be free of homicidal thoughts/attempts Develop 3 coping skills to deal with depression Identify 3 positive support systems to call in crisis Develop a crisis plan with 3 edouard people Identify 2 positive traits per week about myself Identify 2 things I have to look forward to Identify 2 positive people in my life and 1 thing I appreciate about them DSM5/PS Stressors/Medical Prob Diagnosis' (DSM 5, Stressors, Medical): 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
--- NOTE | 2016-07-13 10:55 | SOCIAL WORKER PROG NOTE PSYCH ---
Social Work Progress Note Progress Note Patient authorized 8 days 07/12/16-07/19/16 with review due on 07/20/16. Auth # [id number]. Call [phone] for review.
[2016-07-13 12:14] VITALS: BP 107/69
[2016-07-13 15:38] VITALS: BP 108/63
--- NOTE | 2016-07-13 16:01 | CPS MD/APRN INITIAL ASSE PSYCH ---
Psychiatric Admission Hotel Yardperson's Note Reviewed: Yes Patient Seen and Examined: Yes Identifying Information: Patient is a 50-year old female. Chief Complaint: "I can't stop my thoughts." Reaction to Hospitalization: "I'm glad to be here, I need help." History of Present Illness Onset of Illness: Patient had been discharged from [facility] in May 2016 for MDD, recurrent severe, with psychosis. Patient reported medication nonadherence with psychotropic medications x 1 week prior to this hospital presentation. Since her discharge from [facility] in May 2016, patient was started on Adderall 10mg BID and Zoloft 50mg Qday and Risperdal 0.5mg QAM and 1mg at HS were continued by OPS. She was brought to ED by her mother and related to endorsing paranoid and delusional thoughts, and HI toward her , mother, adult children and dog with command auditory hallucinations to stab them. Circumstances Leading to Admission: medication and treatment nonadherence Problem(s) Justifying Need for Admission: +HI towards , mother, adult children and dog, +paranoia and delusions, intrusive/racing ego dystonic thoughts; command auditory hallucinations to stab adult children, , mother, and dog. 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 - Include inpatient and outpatient treatment Treatment History: [facility] (attended 1 med appointment on 06/25/[address] Barajas). [facility] (06/09/16-06/16/16) [facility] this past summer. [facility] 2016 History of Suicide Attempts or Gestures Patient denied. Substance Abuse History: Patient denied. Allergies: Coded Allergies: latex (Mild, RASH 01/22/16) escitalopram (From LEXAPRO) (RACING HEART 01/22/16) gluten (INTOLERANCE 01/26/16) Antihistamines - Ethanolamine (Intermediate, "WIRES ME UP" 06/10/16) hydromorphone (NUMBNESS, COULDNT FEEL LEGS 01/22/16) prednisone (ANXIETY 01/22/16) Home Med List: Sertraline 50 mg QAm Adderall 10 mg BID Clonazepam 0.5 mg to 1 mg at bedtime Risperdal 0.5mg QAM and 1mg at HS - Include any medical condition(s) that may - impact the patient's recovery/remission Past Medical History: Fibromyalgia chronic back pain celiac disease hypothyroidism sarcoidosis Past History Medical History Neurological: peripheral neuropathy EENT: sinusitis Cardiovascular: NONE Respiratory: SARCOIDOSIS Gastrointestinal: CELIAC DISEASE Hepatic: NONE Renal: NONE Musculoskeletal: fibromyalgia Psychiatric: anxiety, depression Endocrine: Baylee's thyroiditis, HYPOTHYROIDISM Blood Disorders: NONE Cancer(s): NONE BOX MACHINE OPERATOR/Reproductive: NONE History of MRSA: No History of VRE: No History of CDIFF: No Surgical History Surgical History: , MEDIASTINEOSCOPY Psychiatric Family/Social Hx Family History Psychiatric Illness: Patient reported her paternal aunt had early onset dementia. Denied family psychiatric illness. Substance Use: Patient denied. Suicides: Pt denied. Social History Living Situation: Patient lives at home with her , adult children, and dog. Significant Relationships (family/friends): , children, mother and brother. 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 Had worked at [employer] Legal: Pt denied. Healthly Behaviors Screening Tobacco Screening Tobacco Use from ED Docu: Current Daily Use Daily Tobacco Use Amount/Type: => 5 Cigarettes daily - If tobacco counseling indicated - the following topics are required. - #1 Recognizing dangerous situations. - #2 Coping Skills. - #3 Basic information about quitting. Status of Tobacco Cessation Counseling: #1, #2 AND #3 Completed Cessation Med Status: Nicotine Gum Ordered Alcohol Screening - ETOH screen POS if BAL >=80 or Audit-C>= M4/F3 Audit-C Score from Diag Assess: 0 Blood Alcohol Level: Laboratory Tests 07/12 1445 Toxicology Serum Alcohol (<10 MG/DL) < 10.0 Alcohol Use Screening Results: Neg per Audit C &/or BAL - If ETOH counseling indicated - the following topics are required. - #1 Express concern about the patient's - drinking at unhealthy levels, include informing - of national norms for moderate drinking: - men <= 14 drinks/week, max 4 drinks/occasion - women <= 7 drinks/week, max 3 drinks/occasion - #2 Providing feedback, including linking alcohol to - negative physical effects (liver injury, hypertension) - negative emotional effects (relationship problems and - depression) - negative occupational consequences (reduced work - performance) - #3 Advising the patient to abstain from alcohol or - to drink below national norms for moderate drinking - (as listed above). Status of ETOH Use Counseling: N/A B/C NO ETOH Use Metabolic Screening - Screen if on a Neuroleptic Medication - Metabolic screening should include: - Blood Pressure, BMI, Glucose or Hgb A1c, & a - Lipid profile from within the past 365 days. Metabolic Screening () Not Applicable, patient not on a neuroleptic. OR ([X]) Patient on a neuroleptic(s) . Enter below results for Glucose or Hemoglobin A1C, and lipid panel if obtained during the last 365 days. BMI: 23.800 Blood Pressure: 108/63 Laboratory Results (If applicable): Lab Cholesterol 193 MG/DL 07/12/16 1445 Cholesterol/HDL Ratio 3 % 07/12/16 1445 Glucose 119 mg/dL H 07/12/16 1445 HDL Cholesterol 73 mg/dL H 07/12/16 1445 LDL Cholesterol, Calc 102 mg/dL 07/12/16 1445 Triglycerides 94 mg/dL 07/12/16 1445 Exam and Plan Mental Status Examination Ambulation Status: Steady and independent Appearance: Well groomed, petite female. Attitude towards examiner: Cooperative Psychomotor activity: WNL Behavior: WNL Quality of speech: Normal in rate, tone and volume. Affect: Constricted Mood: "Overwhelmed" Suicidal Ideation: Patient denied. Homicidal Ideation: She reported last HI was towards her , mother, adult children, and dog on [email or web address]. Hallucinations: Patient reported hearing voices of "God," "the devil," and "my own voice." She reported "it's a three way continuous conversation." Paranoid/Delusional Material: +hyperreligiousity of God and the Devil. Patient continues to endorse beliefs that she has severe environmental sensitivities that affect her neurologically. Difficulties with thought organization: Grossly intact. Insight: Limited Judgment: Fair Orientation: A&Ox4 Cognition: Grossly intact Memory Function: Grossly intact Estimate of intellectual functioning: Average Assets/Strengths Patient Identified Assets/Strengths: Motivated for treatment, educated, supportive family Impression/Plan Impression and Plan: Patient is a 50-year old female with a h/o Baylee's thyroiditis, sarcoidosis, hypothyroidism, celiac disease, and fibromyalgia. She was discharged from [facility] in May 2016 on Risperdal 0.5mg QAM and 1mg QHS, after initial presentation of command auditory hallucinations telling her to harm herself and . Symptoms had stabilized on Risperdal 0.5mg QAM and 1mg QHS during previous hospitalization. She represents to [facility] with symptoms of hyperreligiousity of the devil and God, and command auditory hallucinations telling her to stab her mother, adult children, dog and . She reported "obsessive" ego-dystonic intrusive and racing thoughts. Thought process appears linear, paranoid and delusional. She reported being off of psychotropic medications x 1 week prior to this present hospitalization. Of note, she had been started on Adderall 10mg BID during OPS services for unclear reasons. Concern for Adderall ? activating psychotic symptoms. Will not restart Adderall at this time. - Include all active medical diagnosis that require tx DSM 5 Diagnosis(es): MDD, recurrent, severe with psychotic features. R/O OCD R/O Neurocognitive disorder R/O psychotic disorder related to a medical condition. - Initial Tx Plan for Active Psych & Medical Conditions Treatment Plan: 1. Patient will be monitored on the unit for safety, depression, anxiety, suicidal ideation, homicidal ideation, racing thoughts and auditory hallucinations. 2. Additional information is needed from collaterals, including her , and Dr. Barajas from OPS. 3. Anticipate once clinically stable, that the patient will be discharged to home and family and be referred to IOP. 4. Seen for admission H&P by Dr. Rin Alcala. TSH and free T4 resulted normal, with an elevated Total T4. Per H&P eval, Dr. Alcala discussed with Dr. Yo, he recommended to continue with current dose (112 mcg) of synthroid and patient can follow up as outpatient. 5. Increase Risperdal from 0.5mg QAM and 1mg QHS to Risperdal 1mg BID. Consider increasing during hospitalization to further target psychosis. 6. If symptoms of psychosis clear on Risperdal, will consider increasing Zoloft above 50mg QD to target intrusive ego dystonic thoughts. - Factors that would help patient function - in a less restrictive setting. Factors: Alleviation of HI and CAH. Stabilize psychosis. Medication/treatment adherence.
--- NOTE | 2016-07-13 16:49 | SOCIAL WORKER PROG NOTE PSYCH ---
Social Work Progress Note Progress Note Met with patient today for the first time since readmission to the hospital. Patient presents much more religiously preoccupied this time around. Patient reports experiencing auditory hallucinations form both God and the Devil. She reports a constant cardenas in her head between these voices and that the Devil tries to justif her homicial thoughts. Patient reports that she recently (most recently on [place]) having thoughts and plans to stab her family members, including her mother, children, and her dog. She reports having to fight these thoughts from acting on them. Patient reports being preoccupied with numbers and the meanings of her dreams. She reports trying to count up numbers constantly and finding the meanings of the numbers. Patient states the voices in her head tell her " I am a serial killer." Patient expresses her fear over these thoughts and voices and reports no desire to act on them presently. Patient is open to med adjustments at this time and continues to express a desire for neuro psych testing.
[2016-07-13 20:28] VITALS: BP 105/67
[2016-07-14 07:44] VITALS: BP 88/55
--- NOTE | 2016-07-14 11:14 | CP SOUTH PROGRESS NOTE PSYCH ---
Psych (Inpt) Progress Note Progress Note Include the following elements, when applicable: Involvement in the active treatment of the patient with behavioral observations of the patient and the patient's response to the treatment. Review of the ongoing treatment process in the context of the treatment plan. Indication of how multi-disciplinary staff members are carrying out the treatment plan. Plans for future interventions and recommendations for revision of the treatment plan. Liaison with other physicians/providers. Progress Note: [I discussed this patient's progress to date, current mental status, treatment process in the context of the treatment plan, and discharge planning with staff/ team in the daily morning inpatient team meeting. I also met with the patient myself in individual session.] SUBJECTIVE: "My mind won't shut off." OBJECTIVE: Current Medications Sig/Remi Start time Last Medication Dose Route Stop Time Status Admin Al Hydroxide/Mg 30 ML Q4-6 PRN PRN 07/12 1645 AC Hydroxide PO Benztropine Mesylate 0.5 MG 0800,0 07/13 2200 AC 07/14 PO 0857 Cholecalciferol 1,000 IU DAILY 07/13 1000 AC 07/14 PO 0857 Clonazepam 0.5 MG DAILY NEEDED PRN 07/12 1630 AC 07/12 PO 07/19 1629 2041 Cyanocobalamin 1,000 MCG DAILY 07/13 1000 AC 07/14 PO 0857 Fish Oil 1,050 MG DAILY 07/13 1000 AC 07/14 PO 0858 Ibuprofen 400 MG Q6P PRN 07/12 1645 AC PO Lactobacillus 1 CAP DAILY 07/13 1000 AC 07/14 Acidophilus PO 0857 Levothyroxine Sodium 0.112 MG 1/2H BEFOR/BREAKFAST 07/13 0700 AC 07/14 PO 0715 Lorazepam 1 MG Q4 HRS NEEDED PRN 07/12 1645 DC PO Multivitamins 1 TAB DAILY 07/13 1000 AC 07/14 Therapeutic PO 0858 Nicotine 2 MG Q2 HRS NEEDED PRN 07/13 1715 AC PO Risperidone 1 MG 0800 07/14 0800 AC 07/14 PO 0857 Risperidone 0.5 MG DAILY 07/13 1000 DC 07/13 PO 0945 Risperidone 1 MG AT BEDTIME 07/12 2200 AC 07/13 PO 2134 Risperidone 0.5 MG Q4 HRS NEEDED PRN 07/12 1645 AC PO Sertraline HCl 50 MG DAILY 07/13 1000 DC 07/14 PO 0857 Trazodone HCl 50 MG AT BEDTIME NEED.. 07/12 1645 AC PO Vital Signs Date Time Temp Pulse Resp B/P Pulse O2 O2 Flow FiO2 Ox Delivery Rate 07/14 0744 96.6 87 88/55 07/138 97.7 92 92 105/67 07/13 1538 96 108/63 07/13 1214 100 107/69 ASSESSMENT: Collateral was received from OPS Dr. Ryan Barajas: He met with the patient on 1 encounter on 06/25/16 for medication intake. Patient had presented with intrusive thoughts, and complaints of poor attention, which appeared to have an OCD component during his encounter with her. Adderall 10mg BID was started for poor attention as a temporary treatment in addtion to Zoloft 50mg daily, Clonazepam 0.5 mg to 1 mg at bedtime, and the patient was recommended to continue Risperdal 0.5mg every morning and 1mg at HS. The patient did not show to scheduled follow-up appointment on 07/05/16. Dr. Barajas reported that there appeared to be many inernal and external inconsistencies to the patient's reported history/presentation. During his encounter with her, the patient did not appear acutely psychotic or seem to fit any particular known clinical picture. He further reported that he was unclear if there was some material gain at play, which was consistent with his documented OPS progress note on 06/25/16. This life underwriter discussed with Dr. Barajas, potential approaches to stabilize her symptoms: 1) utilize Risperdal to stabilize psychotic symptoms, 2) stop Adderall for ? activation of psychotic symptoms, 3) restart SSRI therapy for underlying intrusive thoughts process once psychotic symptoms stabilize. Met with the patient today, who appeared A&Ox4. Speech was normal in rate, tone and volume. She presented calm and cooperative. Eye contact was appropriate. She spoke of hearing her voice constantly in her head saying "negative and mean things." For example, she reported today she saw another patient discharge from the unit and as the patient left the unit, she heard her voice say to her "you' re not going to go home, you won't make it that far." Additionally, she reported what appeared to be intrusive thoughts throughout the day that "Nobody can help me," "I'm wrong," "I'm a stupid bitch," "you're a stupid bitch." She reported knowing that these things are not true, but can't stop the "conversation in my head." The patient was unable to differentiate if these were thoughts vs. hallucinations. The patient further expressed feeling preoccupied by "numbers." She reported finding "meaning" in numbers that result in the factor of 6 which she associates with the devil. For example, the patient reported believing that her son is the antichrist because his birthday is on [birth year] She reported that "1+2+3=6 and therefore he is the antichrist." The patient spoke of this nonchalantly and expressed concern for her thoughts, but did not convey this in her affect. Affect appeared full-range. She spoke of not understanding why she is having these symptoms. She denied active/passive suicidal ideation and homicidal ideation. She denied a history of harm to herself and others. She denied visual hallucinations. Thought process appeared organized. Thought content was bizarre and preocuppied. The patient reported tolerating increased risperdal this morning from 0.5mg to 1mg every morning. She denied untoward medication effects. Patient was agreeable to continue dose, and increase tomorrow after evaluating how she responds to 1mg Risperdal BID today. Encouraged patient to utilize prn Risperdal for symptoms of psychosis. AIMS=0. PLAN: 1. Continue Risperdal 1mg BID, will increase tomorrow if patient continues to tolerate. 2. Continue Cogentin 0.5mg BID to prevent EPS. 3. Please offer patient prn risperdal for psychosis. 4. Discontinue Zoloft, as unclear if SSRI is activating psychotic symptoms. Once psychosis is stabilized, will consider adding SSRI to target intrusive thoughts. 5. Continue monitoring the patient on unit for safety, psychosis, HI, SI, and medication tolerance. 6. Dispo planning per primary team.
[2016-07-14 12:24] VITALS: BP 109/56
--- NOTE | 2016-07-14 13:35 | SOCIAL WORKER PROG NOTE PSYCH ---
Social Work Progress Note Progress Note Patient presents today with similar presentation as yeterday. Patient presented calm, oriented X3, and with affect congruent to mood. Patient continues to report AH with the God and Devil talk backing in her forth. Patient reports that it is a constant conversation and becoming exhausting. She denies any SI/HI/VH. Patient reports that the voices have not been telling her to hurt anyone since being in the hospital and she has no plans to hurt anyone. Patient reports that the voices are telling her that if she gets out of the hospital she is just going to go to long term. Patient reports frustration over the voices and fear that they will not subside. Patient is going to speak to her this evening about coming in for a family meeting this week. I informed her that I will not be in for the remainder of the week but that they can still have a meeting with Mignon and the covering transition social worker. Patients just started a new job and she is unsure if he will be able to come in earlier then 3:30. I informed her of good time options and also suggested she see if he is able to get out of work earlier on Tuesday since we are going into a holiday weekend. She will notify Mignon tomorrow with time her is available to come in.
[2016-07-14 15:51] VITALS: BP 100/69
[2016-07-14 19:59] VITALS: BP 111/68
[2016-07-15 07:55] VITALS: BP 91/56
[2016-07-15 12:17] VITALS: BP 101/63
--- NOTE | 2016-07-15 13:43 | SOCIAL WORKER PROG NOTE PSYCH ---
Social Work Progress Note Progress Note Had lengthy discussion with patient over the symtoms that she is experiencing. Patient genuinely concerned about what action she could potentially take in possibly hurting someone. Patient remains very sonfused about how these "arguments in my head", between my "good self and a malicious version of myself argiung about hurting family, and now, possibly hurting other people on the unit ". Patient admitted that she is kind of "anti-medicatio", so she did not take the Risperdol regilarly, and admits hat she had expressed wanting to keep dose very low. Suggested that if she wamted to determine if medication trae help that she tell Mignon that she is willing to take the medication at a dose that is therapeutic, and commit to giving it a real try to see if that helps. We also reviewed the brain teat which Mignon had indicated that she would speak to Dr Godwin about. Also talked about how unusual the onset of symtoms were, as well as possibly working on trying to push thoughts away, as others who have had to live with these symtoms for years have tried. Patient stated that she is really willing to try anything. Patient would welcome a family meeting, but states that it probably could not happen until after 4 p. m., so I stated that I could not commit to that time for another clinician. I feel that it was a beneficial session.
--- NOTE | 2016-07-15 15:30 | CP SOUTH PROGRESS NOTE PSYCH ---
Psych (Inpt) Progress Note Progress Note Include the following elements, when applicable: Involvement in the active treatment of the patient with behavioral observations of the patient and the patient's response to the treatment. Review of the ongoing treatment process in the context of the treatment plan. Indication of how multi-disciplinary staff members are carrying out the treatment plan. Plans for future interventions and recommendations for revision of the treatment plan. Liaison with other physicians/providers. Progress Note: Medication list reviewed. Case and treatment plan discussed in team meeting. Staff reports that the patient had difficulty with her roommate last night. Patient had HI toward roommate, to smother her, so patient slept in lounge. Patient refused prn medication. Patient will be issued a single room. Staff reports that the patient has been guarded and paranoid around medications. Preoccupied. I have ordered mouth checks. Refusing B12 and fish oil, so I have discontinued them. Out in the milieu. Family visited. Patient seen at 1:58 pm. Casually dressed ambulatory WF sitting in a chair in [facility]. Calm, polite and cooperative. Reports that Risperdal has done anything but make her sleepy. Had CAH last night that told her to smother roommate. Reports AHs have been present for 2 months. Affect is calm and blunted. 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 Reports Dr. Pederson has started working her up for dementia. States she has been having trouble with executive planning. Mood: hopeful that this medicine (Risperdal) or some medicine will help her. Sad 1/10. Anxiety 0/10. Denies feeling hopeless, helpless, worthless or guilty. Denies active and passive SI. Reports having HI towards me. These are intrusive, ego-dystonic homicidal thoughts. Reports AHs are self-talk, inside her head, but are up to 3 voices, male. Denies VH and PI. Ox3. Sleep is so-so. Appetite is great here. Energy is good. Agrees to increase Risperdal dose to 2 mg qAM and 1 mg qhs. Agrees to mouth checks. Patient asked if it is possible for someone to have done something that they can't remember. I suspect there is an OCD component here with "le grand doubt." IMPRESSION: Slow progress. Continue present treatment plan. Monitor response to increase in Risperdal dose. Continues to require inpatient level of care.
[2016-07-15 15:55] VITALS: BP 99/56
[2016-07-15 20:29] VITALS: BP 112/53
[2016-07-16 07:32] VITALS: BP 100/75
[2016-07-16 12:08] VITALS: BP 90/60
--- NOTE | 2016-07-16 13:22 | SOCIAL WORKER PROG NOTE PSYCH ---
Social Work Progress Note Progress Note Spoke with Mignon Hager, who is patients microwave engineer, and Mignon stated that she would not be in on Tuesday. Patient was looking forward to a family meeting with her . I told her that she could have a choice of meeting with me and on Tuesday as she requested, or else wait until Tuesday and have the meeting with Mignon and Angelika with husbandm Patient will consider these options. s
--- NOTE | 2016-07-16 13:24 | CP SOUTH PROGRESS NOTE PSYCH ---
Psych (Inpt) Progress Note Progress Note Include the following elements, when applicable: Involvement in the active treatment of the patient with behavioral observations of the patient and the patient's response to the treatment. Review of the ongoing treatment process in the context of the treatment plan. Indication of how multi-disciplinary staff members are carrying out the treatment plan. Plans for future interventions and recommendations for revision of the treatment plan. Liaison with other physicians/providers. Progress Note: [I discussed this patient's progress to date, current mental status, treatment process in the context of the treatment plan, and discharge planning with staff/ team in the daily morning inpatient team meeting. I also met with the patient myself in individual session.] SUBJECTIVE: "I don't know if the medication is helping." OBJECTIVE: Current Medications Sig/Remi Start time Last Medication Dose Route Stop Time Status Admin Al Hydroxide/Mg 30 ML Q4-6 PRN PRN 07/12 1645 AC Hydroxide PO Benztropine Mesylate 1 MG 0800,07/16 UNVr PO Benztropine Mesylate 0.5 MG 0800,07/13 220 DC 07/15 PO 2144 Cholecalciferol 1,000 IU DAILY 07/13 1000 AC 07/16 PO 0846 Clonazepam 0.5 MG DAILY NEEDED PRN 07/12 1630 AC 07/12 PO 07/19 1629 2041 Ibuprofen 400 MG Q6P PRN 07/12 1645 AC PO Lactobacillus 1 CAP DAILY 07/13 1000 AC 07/16 Acidophilus PO 0846 Levothyroxine Sodium 0.112 MG 1/2H BEFOR/BREAKFAST 07/13 0700 AC 07/16 PO 0705 Multivitamins 1 TAB DAILY 07/13 1000 AC 07/16 Therapeutic PO 0846 Nicotine 2 MG Q2 HRS NEEDED PRN 07/13 1715 AC PO Risperidone 2 MG 0 07/16 2200 UNVr PO Risperidone 2 MG 0800 07/16 0800 AC 07/16 PO 0846 Risperidone 1 MG AT BEDTIME 07/12 2200 DC 07/15 PO 2144 Risperidone 0.5 MG Q4 HRS NEEDED PRN 07/12 1645 AC PO Trazodone HCl 50 MG AT BEDTIME NEED.. 07/12 1645 AC PO Vital Signs Date Time Temp Pulse Resp B/P Pulse O2 O2 Flow FiO2 Ox Delivery Rate 12/30 1208 77 90/60 07/16 0732 96.9 76 100/75 07/15 2029 97.5 87 112/53 07/15 1555 83 99/56 ASSESSMENT: Met with the patient today, who presented A&Ox4. Speech was normal in rate, tone and volume. Eye contact was appropriate. Affect was calm and blunted. She reported "not feeling much different" on increased Risperdal. However, patient did note that intrusive ego dystonic thoughts were "slower and less constant." She reported being able to focus during milieu groups and activites, without having a "constant conversation in my head." Patient continued to report continuing to hear her own voice in her head, as well as the voice of God and the Devil. She reported feeling less preoccupied with numbers, and described not seeking things out to count. Patient did report having a fleeting thought of HI today to "choke a patient who I (pt) was playing a puzzle with." Patient denied HI plans or intent to carry out this action, and was able to work through thought. The patient also was able to verbalize the consequences to acting out on this behavior, such as legal charges and arrest. Patient reported she does not want that to happen, and additionally denied intent to want to harm anyone. The patient stated and believed she would not harm herself or others. Patient was instructed that when thoughts such as these come on to notify nursing staff. Patient contracted to do this and verbalized understanding of this. The patient denied suicidal ideation, plans and intent. Thought process was organized and linear. Thought content appeared preocuppied at times. Reviewed with the patient this verse writer's recommendation to trial a mood stabilizer such as [place], Depakote, or Tegretol, as some of her presentation leads me to consider a potential underlying bipolar disorder secondary to racing and intrusive thoughts, and hyperreligiousity. Symptoms of ego dystonic intrusive and obsessive thoughts also lead be to consider and underlying OCD component, however there is concern that adding an SSRI may potentially activate her symptoms of hyperreligiousity or fleeting HI. This verse writer strongly recommended the patient consider trialing one of the three mood stabilizer's mentioned above. The risk/benefit/SE profiles of [place], Tegretol, and Depakote were reviewed with the patient, who verbalized understanding of education. The patient expressed concern about polypharmacy, and presently elected to maximize Risperdal, which I feel is clinically appropriate given continued HI and preocuppied hyperreligiousity. Discussed with the patient increasing Risperdal to 2mg BID to target symptoms of psychosis. Additionally reviewed with the patient, that I would increase Cogentin to 1mg BID, given increase in Risperdal to counter potential onset of abnormal involuntary movements. There was no evidence of EPS or dystonia. AIMS=0. Patient reported tolerating Risperdal well and denied untoward medication effects, and is agreeable to continue taking. PLAN: 1. Continue monitoring the patient on unit for mood, homicidal ideation, intrusive thoughts, and psychosis. 2. Increase Risperdal to 2mg BID to target psychosis, and Cogentin to 1mg BID to counter potential onset of abnormal involuntary movements. Monitor response to medication increase. 3. Consider starting mood stabilizer over the weekend, if patient is agreeable to trial. [place], tegretol and depakote were reviewed at length with the patient today. 4. Family meeting next Tuesday. 5. Dispo planning per primary team.
[2016-07-16 15:42] VITALS: BP 101/59
[2016-07-16 19:43] VITALS: BP 103/54
[2016-07-17 07:39] VITALS: BP 81/51
[2016-07-17 12:05] VITALS: BP 93/60
--- NOTE | 2016-07-17 13:01 | CP SOUTH PROGRESS NOTE PSYCH ---
Psych (Inpt) Progress Note Progress Note Include the following elements, when applicable: Involvement in the active treatment of the patient with behavioral observations of the patient and the patient's response to the treatment. Review of the ongoing treatment process in the context of the treatment plan. Indication of how multi-disciplinary staff members are carrying out the treatment plan. Plans for future interventions and recommendations for revision of the treatment plan. Liaison with other physicians/providers. Progress Note: Medication list reviewed. Case discussed with nurse, who reported that the patient continues to report having strange thoughts. Had visit from her last night. Patient has been visible on the unit. Patient seen at 11:12 AM. Affect is calm and euthymic. Feels about the same. Reports intrusive thoughts are about the same. She is aware that Risperdal dose was increased. Rates sad mood 0/10 and anxiety 2/10. Denies feeling hopeless, helpless, worthless or guilty. Denies active and passive suicidal ideation. Reports having homicidal thoughts that could be toward anybody. Denies any homicidal intent. Reports auditory hallucinations, a conversation in her own head. Denies visual hallucinations and paranoid ideation. Reports she slept well last night. Appetite is good. Energy is "just bored to tears." She reports having some dizziness and headaches. I advised her to push fluids and to get up slowly. She is worried that medications will not work for her psychiatric symptoms. IMPRESSION: Slow progress. Continue present treatment plan.
[2016-07-17 15:56] VITALS: BP 102/55
[2016-07-17 19:51] VITALS: BP 101/70
[2016-07-18 07:38] VITALS: BP 104/61
[2016-07-18 07:42] VITALS: BP 104/61
--- NOTE | 2016-07-18 12:12 | CP SOUTH PROGRESS NOTE PSYCH ---
Psych (Inpt) Progress Note Progress Note Include the following elements, when applicable: Involvement in the active treatment of the patient with behavioral observations of the patient and the patient's response to the treatment. Review of the ongoing treatment process in the context of the treatment plan. Indication of how multi-disciplinary staff members are carrying out the treatment plan. Plans for future interventions and recommendations for revision of the treatment plan. Liaison with other physicians/providers. Progress Note: Case discussed with RN, who reported that the patient is doing ok and slept well. Patient seen at 10:20 a.m. Was resting in bed but got up and met with me in office. Reports feeling almost the same as yesterday. We discussed addition of a mood stabilizer, such as Li+, VPA or CBZ, but she is reluctant and wants to think about it. Affect is calm and blunted. Mood is alright. Sad 09/24. Anxiety 07/27. Denies feeling hopeless, helpless, worthless or guilty. Denies SI. Reports having HI toward no particular target. No intent. No hx violence. Reports AHs, "I guess my own (voice)." But patient thinks she hears ~3 voices. Denies VH and PI. Reports she slept pretty well. Reports appetite is too good here. Energy: feels tired, which she relates to boredom. Appears awake and alert. Tolerating medications well. Agrees to increase Risperdal to 2 mg qAM and 3 mg qHS. Patient wonders if she has schizophrenia. I advised her that age of onset of AHs argues against that diagnosis. IMPRESSION: Slow progress. Continue present treatment plan. Monitor response to Risperdal dose increase.
[2016-07-18 12:20] VITALS: BP 104/65
[2016-07-18 15:34] VITALS: BP 91/54
[2016-07-18 20:14] VITALS: BP 106/60
[2016-07-19 07:37] VITALS: BP 93/60
--- NOTE | 2016-07-19 11:09 | SOCIAL WORKER PROG NOTE PSYCH ---
Social Work Progress Note Progress Note Patient continues to report that she is having the same terrible thoughts that she has been having for the past several months, and those thoughts are to hurt someone. Patient staes that she would prefer not to have to go back to IOP, as she has been through the program once before and found that there was so much negativity that she delt much worse much of the time. Patient reports she has been willing to have the medication increased, but she continues to have doubts that the medicine will help her . She is rather negative this morning , while, at the same time acting pleasant and completely appropriate, with a good sence of humor and some wit. She states that she feels better on days when there are groups as that relives some of the thoughts of hurting others. The other point of focus for her is on "her body being overloaded with chemicals ", which has lead to this thought disorder. Patient stated that she was very nuch in favor of having a family meeting tomorrow, as Mignon would be in, as well as her regular renal social worker. Her can't get here until 4:15 at the earliest, however.
[2016-07-19 12:07] VITALS: BP 104/64
--- NOTE | 2016-07-19 14:30 | CP SOUTH PROGRESS NOTE PSYCH ---
Psych (Inpt) Progress Note Progress Note Include the following elements, when applicable: Involvement in the active treatment of the patient with behavioral observations of the patient and the patient's response to the treatment. Review of the ongoing treatment process in the context of the treatment plan. Indication of how multi-disciplinary staff members are carrying out the treatment plan. Plans for future interventions and recommendations for revision of the treatment plan. Liaison with other physicians/providers. Progress Note: Case and treatment plan discussed in team meeting. Staff reports that the patient had a visit with her and it went well. Watches TV. Stays to herself. Went to bed early. Wants to get out more this year. Family meeting is scheduled with for tomorrow. Patient seen at 11 AM. Reports that she had a very brief, fleeting moment of clarity this morning and then it went away. Reports she slept really well. Affect is calm and euthymic. Indicates she had visits yesterday from brother, and daughter. Reports mood is a little confused although she does not seem confused. Rates sad mood 2/10. Rates anxiety 2/10. Denies feeling hopeless, helpless, worthless or guilty. Denies suicidal ideation. Reports ongoing homicidal ideation, "still, yeah." Reports ongoing auditory hallucinations, without change. Denies visual hallucinations. Denies paranoid ideation. Reports appetite is too good. Energy: "eh, so boring here." Tolerating medications well, without complaint. IMPRESSION: Slow progress. Continue present treatment plan. Monitor response to recently increased Risperdal dose.
[2016-07-19 15:42] VITALS: BP 90/56
[2016-07-19 19:51] VITALS: BP 128/67
[2016-07-20 07:40] VITALS: BP 93/58
--- NOTE | 2016-07-20 08:15 | CP SOUTH PROGRESS NOTE PSYCH ---
Psych (Inpt) Progress Note Progress Note Include the following elements, when applicable: Involvement in the active treatment of the patient with behavioral observations of the patient and the patient's response to the treatment. Review of the ongoing treatment process in the context of the treatment plan. Indication of how multi-disciplinary staff members are carrying out the treatment plan. Plans for future interventions and recommendations for revision of the treatment plan. Liaison with other physicians/providers. Progress Note: [Chart, medications, and labs reviewed.I discussed this patient's progress to date, current mental status, treatment process in the context of the treatment plan, and discharge planning with staff/ team in the daily morning inpatient team meeting. I also met with the patient myself in individual session.] SUBJECTIVE: "Everything feels the same." OBJECTIVE: Current Medications Sig/Remi Start time Last Medication Dose Route Stop Time Status Admin Al Hydroxide/Mg 30 ML Q4-6 PRN PRN 07/12 1645 AC Hydroxide PO Benztropine Mesylate 1 MG 0800,07/16 220 AC 07/20 PO 0900 Cholecalciferol 1,000 IU DAILY 07/13 1000 AC 07/20 PO 0900 Clonazepam 0.5 MG DAILY NEEDED PRN 07/12 1630 DC 07/12 PO 07/19 1629 2041 Ibuprofen 400 MG Q6P PRN 07/12 1645 AC PO Lactobacillus 1 CAP DAILY 07/13 1000 AC 07/20 Acidophilus PO 0900 Levothyroxine Sodium 0.112 MG 1/2H BEFOR/BREAKFAST 07/13 0700 AC 07/20 PO 0629 Multivitamins 1 TAB DAILY 07/13 1000 AC 07/20 Therapeutic PO 0900 Nicotine 2 MG Q2 HRS NEEDED PRN 07/13 1715 AC PO Risperidone 3 MG 07/18 2200 AC 07/19 PO 2124 Risperidone 2 MG 0807/16 0800 AC 07/20 PO 0900 Trazodone HCl 50 MG AT BEDTIME NEED.. 07/12 1645 AC PO Vital Signs Date Time Temp Pulse Resp B/P Pulse O2 O2 Flow FiO2 Ox Delivery Rate 07/20 1209 83 102/69 07/20 0740 96.3 83 93/58 07/19 1951 97.6 88 128/67 ASSESSMENT: Chart reviewed. Met with the patient today, who presented A&Ox4. Affect appeared calm and blunted. Eye contact was appropriate. Speech was normal in rate, tone and volume. Patient reported tolerating increase in Risperdal well, and denied untoward medication effects. AIMS = 0. She reported no noticable changes in her thoughts or AH, since increase to Risperdal 2mg QAM and 3mg QHS. She reported continued egodystonic thoughts that are "negative" and "mean." She denied further auditory hallucinations of the devil and God, and reported AH of her own voice. She did not elaborate on the content of these voices. She appeared less hyperreligious. She reported her anxiety 0/10 (10 being the worst) and reported depression 0/10 (10 being the worst). She denied passive/active suicidal ideation, plans and intent. She continued to report passive HI toward no particular person. She denied HI plans and intent. She was able to verbalize the consequences of acting on thoughts, including legal matters. Reported energy level as good. Reported good sleep and appetite. Thought process was organized and linear. I/J limited. Reviewed with the patient option of adding mood stabilizers such as depakote or tegretol to target egodystonic thoughts, as adding an SSRI may potentially activate AH. Patient appeared reluctant to trial additional medication, and reported having doubts about the efficacy of current Risperdal or future psychotropic trials including Depakote or Tegretol. Patient reported not wanting to start Depakote due to concerns of associated SEs. Reviewed the risk/benefit/ SE profiles of tegretol with the patient, who verbalized understanding of education, and reported she would think more about trial tonight and confirm with this software writer tomorrow morning. Will continue current medications at present. PLAN: 1. Continue monitoring the patient on unit for safety, mood, psychosis. 2. Continue current medications, continue monitoring patient's response to increased Risperdal. 3. Prolactin level ordered. 4. Consider trial of Tegretol with patient consent to start. 5. Phone conference with patient's tomorrow at 3:30PM. 6. Dispo planning per primary team. 7. Mouth checks after every medication administration.
--- NOTE | 2016-07-20 11:07 | SOCIAL WORKER PROG NOTE PSYCH ---
Social Work Progress Note Progress Note Called [facility] E[facility] requesting additional days, had to leave a message. [phone] Auth # [id number]
[2016-07-20 12:09] VITALS: BP 102/69
--- NOTE | 2016-07-20 13:20 | SOCIAL WORKER PROG NOTE PSYCH ---
Social Work Progress Note Progress Note Insurance review complete, 3 additional days covered. Review 07/23/16. Same auth # .
--- NOTE | 2016-07-20 14:24 | SOCIAL WORKER PROG NOTE PSYCH ---
Social Work Progress Note Progress Note Patient continues to report little improvement in symptoms today. Patient continues to report not feeling safe with her thoughts and experiencing AH. Patient is interested in having a family meeting with her but due to his work schedule he is unable to come in during normal business hours. She also states that he is unable to use the phone during work hours due to no cell service at his work location. Patient is open to having a phone conference with her mother if need be, her mother is currently down in [place]. We will arrange a phone conference with her mother for tomorrow. Discharge date is still to be determined due to continued symptoms and not being able to contract for safety at this time.
[2016-07-20 16:34] VITALS: BP 125/68
[2016-07-20 20:01] VITALS: BP 113/68
[2016-07-21 07:42] VITALS: BP 93/58
--- NOTE | 2016-07-21 11:11 | CP SOUTH PROGRESS NOTE PSYCH ---
Psych (Inpt) Progress Note Progress Note Include the following elements, when applicable: Involvement in the active treatment of the patient with behavioral observations of the patient and the patient's response to the treatment. Review of the ongoing treatment process in the context of the treatment plan. Indication of how multi-disciplinary staff members are carrying out the treatment plan. Plans for future interventions and recommendations for revision of the treatment plan. Liaison with other physicians/providers. Progress Note: [Chart, medications, and labs reviewed.I discussed this patient's progress to date, current mental status, treatment process in the context of the treatment plan, and discharge planning with staff/ team in the daily morning inpatient team meeting. I also met with the patient myself in individual session.] SUBJECTIVE: OBJECTIVE: Current Medications Sig/Remi Start time Last Medication Dose Route Stop Time Status Admin Al Hydroxide/Mg 30 ML Q4-6 PRN PRN 07/12 1645 AC Hydroxide PO Benztropine Mesylate 1 MG 0800,07/16 2200 AC 07/21 PO 0851 Cholecalciferol 1,000 IU DAILY 07/13 1000 AC 07/21 PO 0852 Ibuprofen 400 MG Q6P PRN 07/12 1645 AC PO Lactobacillus 1 CAP DAILY 07/13 1000 AC 07/21 Acidophilus PO 0851 Levothyroxine Sodium 0.112 MG 1/2H BEFOR/BREAKFAST 07/13 0700 AC 07/21 PO 0713 Multivitamins 1 TAB DAILY 07/13 1000 AC 07/21 Therapeutic PO 0852 Nicotine 2 MG Q2 HRS NEEDED PRN 07/13 1715 AC PO Risperidone 3 MG 07/18 2200 AC 07/20 PO 2124 Risperidone 2 MG 07/16 0800 AC 07/21 PO 0851 Trazodone HCl 50 MG AT BEDTIME NEED.. 07/12 1645 AC PO Vital Signs Date Time Temp Pulse Resp B/P Pulse O2 O2 Flow FiO2 Ox Delivery Rate 07/21 0742 96.2 86 93/58 07/20 2000 97.8 88 113/68 07/20 1634 86 125/68 07/20 1209 83 102/69 Laboratory Tests 07/20 1625 Chemistry Prolactin (3.0 - 18.6 ng/mL) 151.6 H ASSESSMENT: Met with the patient today, together with Angelika Felix LCSW. On encoutner, the patient was A&Ox4. Speech was normal in rate, tone and volume. Affect was full- range. She described her intrusive thoughts as "the same." She continued to report reduced thoughts and AH of the devil and god. She reported continued AH of negative voices. Patient denied CAH, or voices telling her to harm herself or others. Patient reported passive HI to harm no particular person. She denied plan or intent, and gave a safety promise to not harm anyone while on unit. Patient informed that if she began to endorse active HI to notify nursing staff immediately. Patient verbalized understanding of instruction. Patient denied passive/active suicidal ideation, plans and intent. She denied active HI, plans and intent. She denied visual hallucinations. Thought content was organized, goal-directed, and linear. Thought content was mostly appropriate. She denied acute symptoms of anxiety and depression. She denied feeling hopeless, helpless, and worthless. Patient brought up the subject of ECT, which this abstract writer explained is not primarily indicated for auditory hallucinations. This abstract writer and Angelika Felix LCSW reviewed discharge planning with the patient and recommendation for IOP level of care post-discharge. The patient was initially reluctant to recommendation, reporting "I don't feel I need that." This abstract writer and Angelika Felix LCSW reviewed with the patient that this recommendation was made for a higher level of monitoring of psychiatric symptoms and medication management vs. traditional outpatient psychiatric services. The patient did agree to attend IOP post discharge following conversation with primary team. Reviewed psychotropic medications with patient today. I do not feel a mood stabilizer is indicated for the patient at present, given that her primary symptoms are auditory hallucinations, despite the patient not appearing internally preoccupied. Her mood has been stable over hospital course, there is no evidence of depression, anxiety, mood swings, impulsive/or risky behaviors. Will continue present medications. PLAN: 1. Continue monitoring the patient on unit for auditory hallucinations, passive HI, and safety. 2. Continue current medications. 3. Phone conference scheduled with the patient at 3:30PM today. 4. Tentative discharge tomorrow.
[2016-07-21 12:08] VITALS: BP 99/64
--- NOTE | 2016-07-21 13:11 | SOCIAL WORKER PROG NOTE PSYCH ---
Social Work Progress Note Progress Note Met with patient together with Mignon Dalton APRN. Patient reported a good night sleep last evening. She continues to report AH but reports that they are less religiously preoccupied. She identifies them as a conversation in her head between herself and them. Patient continues to report passive HI but denies any intent or plan. Patient expressed that she is interested in starting a mood stabalizer since current medication does not seem to be effectively addressing her symptoms. Patient continues to present with normal mood and affect congruent with mood. She does not appear to be responding to internal stimuli but reports still experiencing internal stimuli. Patient is interested in discharging the hospital in the near future and is open to attending IOP. Together we explained the importance of stepping down into IOP and having the propper support and monitoring post discharge from the hospital incase symptoms were to worsen or become unmanageable.
--- NOTE | 2016-07-21 13:12 | SOCIAL WORKER PROG TO GOALS ---
Progress Toward Goals Strengths/Capabilities: Pt has a supportive family. Pt has a desire to feel better. Pt is treatment-seeking. Pt is able to articulate her wants and needs. Physical Limitations (Interventions): Chronic back pain Patient Identified Trmt Goals: "I want these thoughts and voices to go away" Discharge Plan: [facility] Problem/Goals #1 Problem #1: homicidal ideation Goal (Short Term): Today I will attend 2 groups Today I will identify 2 stressors Today I will identify 2 positive supports Today I will work on recognizing 3 emotions I am feeling Goal (Prison): Be free of homicidal thoughts/attempts Develop 3 coping skills to deal with depression Identify 3 positive support systems to call in crisis Develop a crisis plan with 3 edouard people Identify 2 positive traits per week about myself Identify 2 things I have to look forward to Identify 2 positive people in my life and 1 thing I appreciate about them Interventions: Patient continues to endorse passive HI with no plan or intent. She reports AH at present. She is attending groups and compliant with medications.
[2016-07-21 16:01] VITALS: BP 110/67
[2016-07-21 19:52] VITALS: BP 107/62
[2016-07-22 07:51] VITALS: BP 93/55
[2016-07-22] MEDS ORDERED: BENZTROPINE MESY1 M1 PO (08:57)
[2016-07-22] MEDS ORDERED: RISPERDAL2 M1 PO ×2 (08:57→12:38)
[2016-07-22] MEDS ORDERED: VITAMIN D31000 UNI2 PO (08:57)
[2016-07-22] MEDS ORDERED: MULTIVITAMINS1 EAC9 PO (08:57)
--- NOTE | 2016-07-22 10:34 | CP SOUTH PROGRESS NOTE PSYCH ---
Psych (Inpt) Progress Note Progress Note Include the following elements, when applicable: Involvement in the active treatment of the patient with behavioral observations of the patient and the patient's response to the treatment. Review of the ongoing treatment process in the context of the treatment plan. Indication of how multi-disciplinary staff members are carrying out the treatment plan. Plans for future interventions and recommendations for revision of the treatment plan. Liaison with other physicians/providers. Progress Note: [I discussed this patient's progress to date, current mental status, treatment process in the context of the treatment plan, and discharge planning with staff/ team in the daily morning inpatient team meeting. I also met with the patient myself in individual session.] SUBJECTIVE: "I feel okay." OBJECTIVE: Current Medications Sig/Remi Start time Last Medication Dose Route Stop Time Status Admin Al Hydroxide/Mg 30 ML Q4-6 PRN PRN 07/12 1645 AC Hydroxide PO Benztropine Mesylate 1 MG 0800,0 07/16 2200 AC 07/22 PO 0902 Cholecalciferol 1,000 IU DAILY 07/13 1000 AC 07/22 PO 0903 Ibuprofen 400 MG Q6P PRN 07/12 1645 AC PO Lactobacillus 1 CAP DAILY 07/13 1000 AC 07/22 Acidophilus PO 0903 Levothyroxine Sodium 0.112 MG 1/2H BEFOR/BREAKFAST 07/13 0700 AC 07/22 PO 0709 Multivitamins 1 TAB DAILY 07/13 1000 AC 07/22 Therapeutic PO 0903 Nicotine 2 MG Q2 HRS NEEDED PRN 07/13 1715 AC PO Risperidone 3 MG 07/18 2200 AC 07/21 PO 2129 Risperidone 2 MG 07/16 0800 AC 07/22 PO 0902 Trazodone HCl 50 MG AT BEDTIME NEED.. 07/12 1645 AC PO Vital Signs Date Time Temp Pulse Resp B/P Pulse O2 O2 Flow FiO2 Ox Delivery Rate 07/22 0751 97.0 97 93/55 07/21 1952 96.8 88 107/62 07/21 1601 93 110/67 07/21 1208 85 99/64 ASSESSMENT: Met with the patient today, on the date of discharge. The patient presented alert and oriented to person, place, time and situation. Speech was normal in rate, tone, and volume. Mood appeared stable. Patient reported feeling "okay." She reported sleep and appetite were good. She denied feeling hopeless, helpless , and worthless. She rated her depression 0/10 (10 being the worst) and anxiety 0/10 (10 being the worst). She denied passive/active suicidal ideation, plans and intent. She denied active homicidal ideation, which she initially presented to [facility] with towards her , mother, children, and dog. She reported fleeting passive homicidal ideation towards no one particular person. She denied homicidal ideation towards her , children, mother, and dog. She denied homicidal plans and intent. She verbalized the consequences of acting on fleeting passive homicidal ideation, including legal consequences of arrest and senior living. Patient denied wanting to face such consequences. She reported passive homicidal ideation is managed by methods of distraction such as talking to others, cleaning, watching television or reading books/magazines. Patient verbalized being motivated to engage in these activities to manage symptoms. The patient stated and also believed she will not harm herself or others. Patient reported less intense auditory hallucinations of "negative voices." She denied command auditory hallucinations. She denied visual hallucinations. Patient denied voodoo preoccupation, which she initially presented to [facility] with. Patient reported protective factors of her , mother, children, and dog. The patient verbalized motivation to follow-up with [facility] intake on 06/21/17 at 12:45PM, for further psychiatric symptom and medication management. Reviewed safety plan with patient, to call [phone]/go to nearest emergency department in the event of an emergency. The patient verbalized understanding of instruction. Patient denied untoward medication effects, and was agreeable to continue taking medications. During phone conference with the patient's yesterday afternoon, with Angelika Felix LCSW, this scientific writer, and the patient; the patient's treatment progress , medication regimen, safety planning and discharge planning were discussed and reviewed. The patient's confirmed that there are no firearms present in their home , and was informed that the patient continued to report passive, fleeting homicidal ideation towards no particular person. The patient's reported that the patient has no history of violence or of acting on these thoughts. The patient's verbalized understanding of above mentioned information, and felt safe having the patient return home to him and his adult children. The patient's reported that he strongly believes that the patient is not at risk for harming himself or their adult children, or dog, who live in the home, as she has no prior history of this. Patient's and patient were in favor of the patient attending [facility] for continued psychiatric treatment and medication management. The patient's expressed no safety concerns regarding the patient returning home. Angelika Felix LCSW and this scientific writer reviewed at length with both the patient and her , that in the event her psychiatric symptoms worsen, or in the event of an emergency, for the patient and her to call 911 or to bring patient to the nearest emergency department. Both the patient and her verbalized understanding of instruction. Reviewed patient's discharge in morning team CPS meeting. Per CPS treatment team decision, the patient is psychiatrically cleared for discharge from inpatient psychiatry and strongly recommended to follow-up with [facility] intake on 07/23/16 at 12:45PM. PLAN: 1. Discharge today into the care of family. 2. Follow-up with [facility] tomorrow, 07/23/16 at 12:45PM. 3. Follow-up with Dr. Yo ('s outpatient chief yeoman) regarding abnormal thyroid labs. Patient verbalized understanding of instruction. 4. Patient refused recommendation to attend Smoking Cessation Group, and refused smoking cessation medication. 5. All discharge precriptions were printed, reviewed with patient, and provided on discharge. 6. In the event of an emergency, call 1/ go to nearest emergency department. Patient verbalized understading of instruction.
--- NOTE | 2016-07-22 10:56 | DISCHARGE SUMMARY REPORT-PSYCH ---
Visit Information Visit Dates/Diagnosis' Admission Date: 07/12/16 Discharge Date: 07/22/16 Reason for Admission: Psychosis & Homicidal ideation Psy Discharge Primary Diag: Unspecified Psychosis Psy Discharge Secondary Diag: R/O OCD; Baylee's thyroiditis; sarcoidosis; hypothyroidism; celiac disease; fibromyalgia. Hospital Course Significant Lab Findings: Lab Glucose 119 mg/dL H 07/12/16 1445 HDL Cholesterol 73 mg/dL H 07/12/16 1445 Prolactin 151.6 ng/mL H 07/20/16 1625 Thyroxine (T4) 12.0 ug/dL H 07/12/16 1445 Amphetamines Screen 1431 NG/ML H 07/12/16 1440 07/12/16 EKG: Sinus tachycardia, rate 100 FY=452 QTc= 418 Course Complications: None. Consultations: Patient was seen for admission history and physical by Dr. Rin Alcala. Please refer to MD note for additional information. Allergies: Coded Allergies: latex (Mild, RASH 01/22/16) escitalopram (From LEXAPRO) (RACING HEART 01/22/16) gluten (INTOLERANCE 01/26/16) Antihistamines - Ethanolamine (Intermediate, "WIRES ME UP" 06/10/16) hydromorphone (NUMBNESS, COULDNT FEEL LEGS 01/22/16) prednisone (ANXIETY 01/22/16) Hospital Course/TX Response: The patient was monitored on the unit for safety, homicidal ideation, mood and psychosis. She participated in multimodal treatments on the unit. Home medication of Zoloft 50mg daily and Adderall 10mg twice a day were discontinued related to concern of activating psychosis. Clonazepam 0.5mg daily prn was also discontinued. The patient was initially resistant to psychotropic treatment, but was agreeable to restarting Risperdal which was increased to 2mg every morning and 3mg at bedtime for auditory hallucinations and congregational preoccupation. Cogentin was restarted and increased to 1mg twice a day. Patient was continued on Synthroid 0.112mg daily per outpatient shipfitters supervisor Dr. Yo. Home medications of Probiotic 1 cap daily, Vitamin D 1,000 IU daily and multivitamin daily were continued during hospital course. The patient tolerated all medications well and denied untoward medication effects. During the hospital course, the patient's mood and affect improved. Active homicidal ideation toward the patient's , mother, adult children, and dog remitted. She endorsed passive fleeting homicidal ideation toward no particular person. Auditory hallucinations improved somewhat, but did not fully resolve. She denied that auditory hallucinations were command in nature. A phone conference was held with the patient, her , Angelika Felix LCSW and this verse writer. The patient's treatment progress, medication regimen, safety planning and discharge planning were discussed and reviewed. During phone conference, the patient's confirmed that there are no firearms present in their home, and was informed that the patient continued to report passive, fleeting homicidal ideation towards no particular person. The patient's reported that the patient has no history of violence or of acting on these thoughts. The patient's verbalized understanding of above mentioned information, and felt safe having the patient return home to him and his adult children. The patient's reported that he strongly believes that the patient is not at risk for harming himself or their adult children, or dog, who live in the home, as she has no prior history of this. Patient's and patient were in favor of the patient attending [facility] for continued psychiatric treatment and medication management. An intake appointment was scheduled on 07/23/16 at 12:45PM at [facility]. The patient's expressed no safety concerns regarding the patient returning home. Angelika Felix LCSW and this verse writer reviewed at length with both the patient and her , that in the event her psychiatric symptoms worsen, or in the event of an emergency, for the patient and her to call 911 or to bring patient to the nearest emergency department. Both the patient and her verbalized understanding of instruction. On the date of discharge, 07/22/16, the patient presented alert and oriented to person, place, time and situation. Speech was normal in rate, tone, and volume. Mood appeared stable. Patient reported feeling "okay." She reported sleep and appetite were good. She denied feeling hopeless, helpless, and worthless. She rated her depression 0/10 (10 being the worst) and anxiety 0/10 (10 being the worst). She denied passive/active suicidal ideation, plans and intent. She denied active homicidal ideation, which she initially presented to [facility] with towards her , mother, children, and dog. She reported fleeting passive homicidal ideation towards no one particular person. She denied homicidal ideation towards her , children, mother, and dog. She denied homicidal plans and intent. She verbalized the consequences of acting on fleeting passive homicidal ideation, including legal consequences of arrest and prison. Patient denied wanting to face such consequences. She reported passive homicidal ideation is managed by methods of distraction such as talking to others, cleaning, watching television or reading books/magazines. Patient verbalized being motivated to engage in these activities to manage symptoms. The patient stated and also believed she will not harm herself or others. Patient reported less intense auditory hallucinations of "negative voices." She denied command auditory hallucinations. She denied visual hallucinations. Patient denied congregational preoccupation, which she initially presented to CPS with. Patient reported protective factors of her , mother, children, and dog. The patient verbalized motivation to follow-up with [facility] intake on 06/21/17 at 12:45PM, for further psychiatric symptom and medication management. Reviewed safety plan with patient, to call [phone]/go to nearest emergency department in the event of an emergency. The patient verbalized understanding of instruction. Patient denied untoward medication effects, and was agreeable to continue taking medications. Discharge HBIPS - Tobacco Use Treatment Offered Post DC Medications Offered: Refused Tob Medication Tx Post DC Tobacco Treatment Plan: Refused Tobcco Tx Pgm - EtOH/Drug Use D/O Treatment Offered Post DC Medications Offered: NA-No EtOH/Drug Use D/O Post DC EtOH/SubAbuse TX Plan: NA-No EtOH/Drug Use D/O Metabolic Screening - Screen if on a Neuroleptic Medication - Metabolic screening should include: - Blood Pressure, BMI, Glucose or Hgb A1c, & a - Lipid profile from within the past 365 days. Metabolic Screening () Not Applicable, patient not on a neuroleptic. OR ([X]) Patient on a neuroleptic(s) . Enter below results for Glucose or Hemoglobin A1C, and lipid panel if obtained during the last 365 days. BMI: 23.800 Blood Pressure: 107/68 Laboratory Results (If applicable): Lab Cholesterol 193 MG/DL 07/12/16 1445 Cholesterol/HDL Ratio 3 % 07/12/16 1445 Glucose 119 mg/dL H 07/12/16 1445 HDL Cholesterol 73 mg/dL H 07/12/16 1445 LDL Cholesterol, Calc 102 mg/dL 07/12/16 1445 Triglycerides 94 mg/dL 07/12/16 1445 Discharge Instructions General Discharge Information Discharge Medications: Discharge Medications- (Dose, route, freq, indication): HOME MEDICATION LIST START taking these NEW Home Medications: Benztropine Mesylate Dose: ORAL, 0800,2200 for Qty: 28 Printed (Benztropine 1 Milligram prevent muscle spasm Refills: 0 Mesylate) 1 MG Take 1 tablet by mouth TABLET twice a day. Last Taken:07/22/16 Time:0900 Cholecalciferol Dose: ORAL, DAILY for VITAMIN Qty: 14 Printed (Vitamin D3) 1,000 1,000 SUPPORT Refills: 0 UNIT TABLET [employer] Last Taken:07/22/16 Unit Time:0900 Multiple Vitamin Dose: ORAL, DAILY for VITAMIN Qty: 14 Printed (Multivitamins) 1 1 Tablet SUPPORT Refills: 0 EACH TABLET Last Taken:07/22/16 Time:0900 Risperidone Dose: ORAL, SEE INSTRUCTIONS Qty: 42 Printed (Risperdal) 2 MG 2 Milligram for clear thoughts Refills: 0 TABLET Take 1 tablet (2mg) by mouth every morning and take 1.5 tablets (3mg) at bedtime. Risperidone 2mg daily (morning dose) last taken: 07/22/16 @ 0900 Risperidone 3mg (night dose) last taken: 07/21/16 @ 2130 CONTINUE taking these Home Medications: Lactobacillus Dose: ORAL, DAILY for Acidophilus (Probiotic) 1 Capsule PROBIOTIC 1 EACH CAPSULE Last Taken:07/22/16 Time:0900 Levothyroxine Sodium Dose: ORAL, DAILY for (Synthroid) 112 MCG 1 Tablet HYPOTHYROIDISM TABLET Last Taken:07/22/16 Time:0700 STOP taking these DISCONTINUED Home Medications: Dextroamphetamine/Amphetamine Dose: ORAL, TWICE DAILY for ATTENTION (Dextroamp-Amphetamin 10 MG 1 Tablet DEFICIT Tab) 10 MG TABLET Reason Stopped: Per Doctor Decision Clonazepam (Clonazepam) 0.5 MG Dose: ORAL, DAILY NEEDED for TABLET 1 Tablet INSOMNIA Reason Stopped: Per Doctor Decision Sertraline HCl (Sertraline Dose: ORAL, DAILY for DEPRESSION HCl) 50 MG TABLET 1 Tablet Reason Stopped: Per Doctor Decision Risperidone (Risperidone) 0.5 Dose: ORAL, Every Morning for MG TABLET 1 Tablet DEPRESSION 0.5MG QAM Reason Stopped: Per Doctor Decision Risperidone (Risperdal) 1 MG Dose: ORAL, TAKE AT BEDTIME for MENTAL TABLET 1 Milligram HEALTH Reason Stopped: Per Doctor Decision Multiple Neuroleptics: ([X]) Not Applicable OR Document below three failed attempts at monotherapy, or a plan to taper to monotherapy, or augmentation of Clozapine. () Patient's Diet: Regular. Patient's Activity: No restrictions. DC Disposition: Patient to return to home, and adult children. Recommendations: Patient was advised to please take medications. She was offered smoking cessation group program information to assist with smoking cessation, however refused treatment. She was offered a smoking cessation discharge medication, however refused treatment. Patient was advised to follow-up with outpatient shipfitters supervisor Dr. Yo regarding elevated thyroxine and prolactin results, who was consulted during inpatient hospitalization by storage garage attendant Dr. Rin Alcala and recommended patient continue current Synthroid dose and follow-up with his outpatient office post-discharge. This verse writer offered to schedule outpatient appointment with Dr. Yo for her, but declined offer and reported she would arrange this herself. Patient was advised to follow-up with [facility] on 07/23/16 at 12:45PM. She was advised that in the event of an emergency, or if her psychiatric symptoms should worsen, to call [phone]/go to nearest emergency department. Patient verbalized understanding of all instructions. Referred To: [address] (t)[phone] Intake scheduled on 07/23/16 at 12:45PM Copies To: [facility]; ROSSANA JOHN,YOMAIRA Huitron
--- NOTE | 2016-07-22 10:57 | SOCIAL WORKER PROG NOTE PSYCH ---
Social Work Progress Note Progress Note Patient to discharge the hospital today. Patient denies SI at present but does continue to report passive HI with no intent or plan at present and continued AH. Patient reports that she feels safe to return home to family and that if symptoms progress or worsen she will return to ED. Patient is aware of consequences if she was to act on these thoughts/ voices and denies any plan or intent to do so. Patients is fully aware of continued HI/AH and denies any concern of her acting on these thoughts. He reports feeling safe for her to return home today and patients children do as well. Patient has agreed to follow through with IOP at and has intake scheduled tomorrow at 12:45pm. Patients is aware of this as well.
[2016-07-22 12:04] VITALS: BP 107/68
== END 2016-07-22 12:50 | DRG 885 ==
LOC: ERH 13:59 → CP SOUTH 16:18 → ERHI 16:19 → CP SOUTH 16:19
PROVIDERS: Physician Assistant; ADMIT Psychiatry & Neurology Psychiatry
DX: F29 Unspecified psychosis not due to a substance or known physiological condition (principal); K90.0 Celiac disease; E06.3 Autoimmune thyroiditis; D86.9 Sarcoidosis, unspecified; E03.9 Hypothyroidism, unspecified; M79.7 Fibromyalgia
CPT/HCPCS: 36415; 81001; 81025; 93005; 93010; G0479; G0480